=== PATIENT | male | born 1950 | race Caucasian/White ===

== ENCOUNTER 2016-11-08 10:31 | Inpatient (IN) ==
[2016-11-08] MEDS ORDERED: 0.9 % Sodium Chloride 1,000 ML ONE (10:51)
--- NOTE | 2016-11-08 10:55 | Emergency Department Note ---
Disposition Clinical Impression: Small bowel obstruction Umbilical hernia Qualifiers: Obstruction and gangrene presence: with obstruction but without gangrene Qualified Code(s): K42.0 - Umbilical hernia with obstruction, without gangrene Disposition: Admitted As Inpatient Condition: Good Referrals: Fabian Jarrett DO [Primary Care Provider] - Forms: ED Satisfaction Letter, Work/School Release Time of Disposition: 12:32 General Adult HPI - General Chief complaint: ED Abdominal Pain Stated complaint: ABD Pain. Time Seen by Provider: 11/08/16 10:38 Source: patient Mode of arrival: ambulatory Limitations: no limitations Nursing Notes Reviewed: Yes Vital Signs Reviewed: Yes - History of Present Illness HPI Narrative: 66-year-old male presenting to the emergency department with chief complaint of abdominal pain and distention. Patient states around midnight last evening he started having severe abdominal pain nausea of vomiting and increased gassiness. Patient also states he has had increased belching. Patient does have a significant history of 5 abdominal surgeries for hernia repairs including mesh. Patient denies any fever at home. Patient states periumbilical and epigastric pain mostly but diffuse upon palpation. He describes the pain as sharp and nonradiating and a 9 out of a 10. Pain Scale: 9 - Related Data Allergies Allergy/AdvReac Type Severity Reaction Status Date / Time No Known Allergies Allergy Verified 11/08/16 10:34 All systems ED: reviewed and negative except as stated. Constitutional: Denies: fever, chills, weakness Eyes: Reports: as per HPI ENT ED: Reports: as per HPI Cardiovascular: Denies: chest pain, palpitations Respiratory: Denies: cough, wheezes Gastrointestinal: Reports: abdominal pain, nausea, vomiting Genitourinary: Reports: as per HPI Musculoskeletal: Reports: as per HPI Integumentary: Reports: as per HPI Neurological: Reports: as per HPI Psychiatric: Reports: as per HPI Endocrine: Reports: as per HPI Hematological/Lymphatic: Reports: as per HPI Allergic/Immunologic: Reports: as per HPI Past Medical History - Past Medical History Attestation: Yes The following information was validated with the patient. Medical history: Reports: no medical history Psychiatric history: Reports: no psych history - Social History Smoking Status: Never smoker Smokeless Tobacco Status: No Alcohol use: Reports: occasionally Drug use: Reports: none Physical Exam - General Limitations: no limitations General appearance: alert, other (Patient appears very uncomfortable sitting in the chair) - Eye Eye exam: Present: normal appearance - Chest Chest inspection: Present: normal inspection, symmetric chest wall rise. Absent : tenderness - Respiratory Respiratory exam: Present: normal lung sounds bilaterally. Absent: respiratory distress, wheezes - Cardiovascular Cardiovascular exam: Present: regular rate, normal rhythm, normal heart sounds - Abdominal Exam Abdominal exam: Present: tenderness, distention, diminished bowel sounds, hypoactive bowel sounds. Absent: guarding, rebound, organomegaly, mass - Extremities Exam Extremities exam: Present: normal inspection, full ROM - Neurological Exam Neurological exam: Present: alert, oriented X3 - Psychiatric Psychiatric exam: Present: normal affect, normal mood - Skin Skin exam: Present: warm, intact Course Course Narrative: 66-year-old male presents to the emergency Department for chief complaint of abdominal pain. Patient has a strong history of abdominal surgery with 5 hernia repairs. Concern for small bowel obstruction at this time. Patient stable in the room at this time with stable vital signs. We will obtain a CT of the abdomen and pelvis along with lipase, CBC, CMP. Also obtained PT/INR and troponin with EKG to rule out ACS. - Reevaluation(s) Reevaluation #1: Reexamined patient. Patient stable in the room. Pain under control. Does not want any more pain medication at this point. CT of the abdomen and pelvis showed mid to distal small bowel obstruction with umbilical hernia with loops of bowel involvement. A call out to surgery for first refusal. Time: 12:19 Reevaluation #2: Spoke with surgeon on-call Dr. Su. She will defer the patient to Dr. Nice due to previous hernia surgeries being completed by him. Time: 12:20 Reevaluation #3: Dr. Hannah accepts the patient to surgical services. Time: 12:31 Vital Signs Temperature 0 F L 11/08/16 10:32 Pulse Rate 69 11/08/16 10:32 Respiratory Rate 18 11/08/16 10:32 Blood Pressure 168/93 11/08/16 10:32 O2 Sat by Pulse Oximetry 95 11/08/16 10:32 Temperature 96.8 F L 11/08/16 10:41 Pulse Rate 69 11/08/16 10:32 Respiratory Rate 18 11/08/16 10:32 Blood Pressure 168/93 11/08/16 10:32 O2 Sat by Pulse Oximetry 95 11/08/16 10:32 Oxygen Delivery Oxygen Delivery Room Air Medical Decision Making - Medical Records Medical records reviewed: Yes I reviewed the patient's medical records. - Lab Data Lab results reviewed: Yes I reviewed the patient's lab results. Result diagrams: 11/08/16 10:48 11/08/16 10:48 Lab Results 11/08/16 11/08/16 11/08/16 Range/Units 10:48 10:48 10:48 WBC 19.3 H (4.3-11.1) K/mcL RBC 5.89 H (4.19-5.50) M/mcL Hgb 17.1 H (12.9-16.9) g/dL Hct 51.5 H (37.5-50.1) % MCV 87.4 (83.0-100.0) fL MCH 29.0 (28.0-33.3) pg MCHC 33.2 (31.6-35.5) g/dL RDW 13.5 (11.5-14.5) % Plt Count 333 (140-400) K/mcL MPV 11.1 (9.4-12.4) fL Immature Gran % 0.5 (0-4) % Seg Neutrophils % 82.5 % Lymphocytes % 12.3 % Monocytes % 4.3 % Eosinophils % 0.2 % Basophils % 0.2 % Neutrophils # 16.0 H (1.6-8.9) K/mcL Lymphocytes # 2.4 (0.6-4.6) K/mcL Monocytes # 0.8 (0.0-1.3) K/mcL Eosinophils # 0.0 (0.0-0.6) K/mcL Basophils # 0.0 (0.0-0.2) K/mcL PT 11.7 (9.4-12.1) Seconds INR 1.1 Sodium 137 (136-145) mEq/L Potassium 4.7 H (3.5-4.5) mEq/L Chloride 100 (98-109) mEq/L Carbon Dioxide 26 (19-29) mEq/L BUN 11 (8-26) mg/dL Creatinine 1.03 (0.72-1.25) mg/dL Est GFR ( Amer) > 60 (> 60) Est GFR (Non-Af Amer) > 60 (> 60) BUN/Creatinine Ratio 11 (6-26) Glucose 216 H (70-99) mg/dL Calculated Osmolality 290 (280-300) Calcium 10.2 (8.6-10.8) mg/dL Total Bilirubin 1.0 (0.2-1.2) mg/dL AST 107 H (5-34) Units/L ALT 130 H (0-55) Units/L Alkaline Phosphatase 91 (38-126) Units/L Troponin I (0-0.03) ng/mL Serum Total Protein 8.5 H (6.0-8.3) g/dL Albumin 4.0 (3.5-5.0) g/dL Globulin 4.5 H (2.4-3.5) g/dL Albumin/Globulin Ratio 0.9 L (1.1-2.2) Lipase 24 (8-78) Units/L 11/08/ Range/Units 10:48 WBC (4.3-11.1) K/mcL RBC (4.19-5.50) M/mcL Hgb (12.9-16.9) g/dL Hct (37.5-50.1) % MCV (83.0-100.0) fL MCH (28.0-33.3) pg MCHC (31.6-35.5) g/dL RDW (11.5-14.5) % Plt Count (140-400) K/mcL MPV (9.4-12.4) fL Immature Gran % (0-4) % Seg Neutrophils % % Lymphocytes % % Monocytes % % Eosinophils % % Basophils % % Neutrophils # (1.6-8.9) K/mcL Lymphocytes # (0.6-4.6) K/mcL Monocytes # (0.0-1.3) K/mcL Eosinophils # (0.0-0.6) K/mcL Basophils # (0.0-0.2) K/mcL PT (9.4-12.1) Seconds INR Sodium (136-145) mEq/L Potassium (3.5-4.5) mEq/L Chloride (98-109) mEq/L Carbon Dioxide (19-29) mEq/L BUN (8-26) mg/dL Creatinine (0.72-1.25) mg/dL Est GFR ( Amer) (> 60) Est GFR (Non-Af Amer) (> 60) BUN/Creatinine Ratio (6-26) Glucose (70-99) mg/dL Calculated Osmolality (280-300) Calcium (8.6-10.8) mg/dL Total Bilirubin (0.2-1.2) mg/dL AST (5-34) Units/L ALT (0-55) Units/L Alkaline Phosphatase (38-126) Units/L Troponin I 0.01 (0-0.03) ng/mL Serum Total Protein (6.0-8.3) g/dL Albumin (3.5-5.0) g/dL Globulin (2.4-3.5) g/dL Albumin/Globulin Ratio (1.1-2.2) Lipase (8-78) Units/L - Radiology Data Radiology results reviewed: Yes I reviewed the patient's radiology results. - EKG Data EKG #1 EKG attestation: Yes I reviewed and interpreted this EKG. EKG results narrative: 59 bpm. Sinus bradycardia. Right bundle branch block noted. FL interval 131, QRS 139, QTc 458. No signs of acute ischemia or ST segment elevation. When compared to previous EKG on09/21/13 no significant changes noted. Right bundle branch block was present at that time.
[2016-11-08] MEDS: Ondansetron 4 MG/2 ML VIAL ONE ×2 (10:59→11:00)
[2016-11-08 11:01] LABS: Basophils % 0.2 %; Eosinophils % 0.2 %; Hematocrit 51.5 % (37.5-50.1); Hemoglobin 17.1 g/dL (12.9-16.9); Immature Granulocytes % 0.5 % (0-4); Lymphocytes # 2.4 K/mcL (0.6-4.6); Lymphocytes % 12.3 %; Mean Corpuscular HGB Conc 33.2 g/dL (31.6-35.5); Mean Corpuscular Volume 87.4 fL (83.0-100.0); Mean Platelet Volume 11.1 fL (9.4-12.4); Monocytes # 0.8 K/mcL (0.0-1.3); Monocytes % 4.3 %; Platelet Count 333 K/mcL (140-400); Red Blood Count 5.89 M/mcL (4.19-5.50); Red Cell Distribution Width 13.5 % (11.5-14.5); Segmented Neutrophils % 82.5 %
[2016-11-08 11:08] LABS: INR 1.1; Prothrombin Time 11.7 Seconds (9.4-12.1)
[2016-11-08 11:11] LABS: Alanine Aminotransferase 130 Units/L (0-55); Albumin/Globulin Ratio 0.9 (1.1-2.2); Alkaline Phosphatase 91 Units/L (38-126); Aspartate Amino Transferase 107 Units/L (5-34); BUN/Creatinine Ratio 11 (6-26); Blood Urea Nitrogen 11 mg/dL (8-26); Calcium 10.2 mg/dL (8.6-10.8); Carbon Dioxide 26 mEq/L (19-29); Chloride 100 mEq/L (98-109); Globulin 4.5 g/dL (2.4-3.5); Glucose 216 mg/dL (70-99); Lipase 24 Units/L (8-78); Osmolality,Calculated 290 (280-300); Potassium 4.7 mEq/L (3.5-4.5); Sodium 137 mEq/L (136-145); Total Protein 8.5 g/dL (6.0-8.3); eGFR For African Americans > 60 (> 60); eGFR For Non-African Americans > 60 (> 60)
--- NOTE | 2016-11-08 11:13 | Emergency Department Note ---
START Narrative - START START: I examined this patient and my medical decision-making was reviewed with the emergency medicine resident. I agree with the documented findings, disposition and treatment plan as described except to the extent set forth below. Patient seen with emergency medicine resident Dr.SAMANTHA MCKENNA, Please see a copy of her note for details of the H&P, ED evaluation, management and disposition. I have independently evaluated the patient and confirmed appropriate portions of the history and physical exam. Briefly: 66-year-old male presents with a day and a half of abdominal distention nausea vomiting and epigastric pain. Multiple prior surgeries for hernia repair. Abdomen is tympanitic and distended decrease her almost absent breath sounds. Ileus and/or bowel obstructions in the differential IV fluids anti-medics abdominal pelvic CT with IV contrast troponin and EKG are pending. Disposition pending.
[2016-11-08] MEDS ORDERED: *HR* HYDROmorphone (PF) 1 MG/ML SYRINGE IVP ONE ×2 (11:16→12:54)
[2016-11-08] MEDS ORDERED: 0.9 % Sodium Chloride 1,000 ML IVC ONE (12:51)
[2016-11-08] MEDS ORDERED: Ondansetron 4 MG/2 ML VIAL IVP ONE ×2 (12:51→19:01)
[2016-11-08] MEDS ORDERED: *HR* HYDROmorphone (PF) 1 MG/ML SYRINGE ONE (12:57)
[2016-11-08] MEDS ORDERED: Ondansetron 4 MG/2 ML VIAL IVP PRN ×2 (13:54→21:03)
[2016-11-08] MEDS: *HR* HYDROmorphone (PF) 1 MG/ML SYRINGE IVP PRN ×3 (14:17→22:09)
[2016-11-08] MEDS: Ringers Solution, Lactated 1,000 ML IVC SCH ×3 (14:18→19:31)
--- NOTE | 2016-11-08 17:19 | Anesthesia Evaluation PreOp ---
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 Other Medical History: Denies Any Significant HX, Other (BMI 41) Anesthesia History: No Prior Anesthetic Complications, Past Anesthesia (EGD for food bolus) Alcohol Use: occasionally Drug use: none Medications and Allergies Mv-Mn/FA/Vit K/Lycop/Lut/Coq10 [Daily Multivitamin Capsule] 1 each PO DAILY [History] 3 Allergy/AdvReac Type Severity Reaction Status Date / Time No Known Allergies Allergy Verified 11/08/16 12:40 - Meds/Allergy Pre-op Review Medications Reviewed: Yes Allergies Reviewed: Yes Beta Blockers on Current Med List: No Anesthesia Results - Labs 11/08/16 10:48 11/08/16 10:48 Anesthesia Exam Vital Signs/O2 Sat, Most Current Temp Pulse Resp BP Pulse Ox 97.8 F 71 18 148/87 95 11/08/16 15:15 11/08/16 15:15 11/08/16 15:15 11/08/16 15:15 11/08/16 15:15 Height: 1.78m Weight: 131kg NPO (# of Hours): acute abdomen - HEENT Pupil (Motor): Pupils equal, EOMI Mallampati: II Oral Opening: Greater than 3 - S[employer]IOR [employer]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
--- NOTE | 2016-11-08 17:33 | General Surg History&Physical ---
Date of Encounter: 11/08/16 Time of Encounter: 16:45 History of Present Illness Chief complaint: Abdominal pain, distention, nausea/vomiting; SBO HPI: Mr. Vargas is a 66 year old male referred to me after presenting to the emergency department with new onset abdominal distention and pain. Symptoms began last evening apparently have progressed in severity. Patient describes a single episode of emesis but multiple episodes of "dry heaves". Last normal bowel movement was approximately 36 hours ago. Evaluation included lab work which shows a leukocytosis of 19.3, hemoglobin 17.1, hematocrit 51.5 consistent with dehydration. Electrolytes are notable for a sodium of 4.7 but BUN and creatinine are normal, AST is 107 ALT 130. The remainder of the LFTs are within normal. CT of the abdomen and pelvis demonstrates a 5.0 x 8.8 cm periumbilical hernia containing several loops of bowel. Additionally several loops of small bowel proximal to the hernia appeared to be moderately dilated loops of small bowel distal to the hernia are collapsed with a transition zone described within the hernia. On my review of these images it appears that the transition zone and small bowel obstruction are not due to the recurrent hernia but rather it appears that the bowel obstruction is due to "adhesions". Incidental note of a 1.8 cm high attenuation nodular density adherent to the left nasal or urinary bladder suggestive of malignancy is noted. The patient relates multiple previous hernia repairs the most recent completed by me using mesh approximately 5 years ago. Past medical history: Recurrent ventral hernias; truncal obesity Surgical history: Multiple ventral hernia repairs; EGD for entrapped food bolus Allergies: No known drug allergies Medications: No routine home medications Social history: Patient is , lives with his spouse; he does not smoke, never has; he denies any illicit drug use. The patient admits to occasional ( weekend) alcohol Family history: Noncontributory Physical examination: Age-appropriate male resting comfortably in his hospital bed. He is in no acute distress. He is afebrile, currently 97.8; pulse 71; respirations 18; blood pressure 148/87. SPO2 on room air 94-95% Skin: Warm without obvious jaundice Lungs: Clear bilaterally, no obvious abdominal pain with deep inspiration Cardiac: Regular rate, no appreciable murmurs Abdomen: Protuberant, tympanitic but nontender. Bowel sounds hypoactive. Mild to moderate deformity of the umbilicus and periumbilical abdominal wall with an associated fascial defect but no obvious masses or tenderness. Extremities: No obvious clubbing, cyanosis, or edema Impression: 66-year-old male with new onset abdominal distention, pain, nausea/ vomiting with radiologic evidence of a small bowel obstruction. The patient was examined, labs and x-rays were reviewed. Nasogastric decompression attempted without success as the NG tube could not be passed via the nose. An exploratory celiotomy has been recommended. The procedure was discussed in detail with the patient and his . Risks include hemorrhage, infection, injury to adjacent structures, respiratory failure/ pneumonia and cardiac risks such as dysrhythmia and/or LA. If the hernia is repaired, with or without mesh, recurrent hernia remains as a risk of the current surgery. Past Med Surg Social Fam HX - Past Medical History Medical history: no medical history Psychiatric history: no psych history - Past Surgical History Surgical History: herniorrhaphy - Social History Smoking Status: Never smoker Smokeless Tobacco Status: No Alcohol use: occasionally Drug use: none - Family History Father Living Status: Age at : 83 Hx Family Cancer: Yes (lung) Medications and Allergies Mv-Mn/FA/Vit K/Lycop/Lut/Coq10 [Daily Multivitamin Capsule] 1 each PO DAILY [History] 3 Allergy/AdvReac Type Severity Reaction Status Date / Time No Known Allergies Allergy Verified 11/08/16 12:40 Review of Systems All systems PM: A 10-system review of systems was performed and is negative for pertinent findings except as documented above in the HPI. General Surgery Exam Initial Vital Signs Temp Pulse Resp BP Pulse Ox 0 F L 69 18 168/93 95 11/08/16 10:32 11/08/16 10:32 11/08/16 10:32 11/08/16 10:32 11/08/16 10:32 Results - Labs 11/08/16 10:48 11/08/16 10:48 Abnormal lab results WBC 19.3 K/mcL (4.3-11.1) H 11/08/16 10:48 RBC 5.89 M/mcL (4.19-5.50) H 11/08/16 10:48 Hgb 17.1 g/dL (12.9-16.9) H 11/08/16 10:48 Hct 51.5 % (37.5-50.1) H 11/08/16 10:48 Neutrophils # 16.0 K/mcL (1.6-8.9) H 11/08/16 10:48 Potassium 4.7 mEq/L (3.5-4.5) H 11/08/16 10:48 Glucose 216 mg/dL (70-99) H 11/08/16 10:48 AST 107 Units/L (5-34) H 11/08/16 10:48 ALT 130 Units/L (0-55) H 11/08/16 10:48 Serum Total Protein 8.5 g/dL (6.0-8.3) H 11/08/16 10:48 Globulin 4.5 g/dL (2.4-3.5) H 11/08/16 10:48 Albumin/Globulin Ratio 0.9 (1.1-2.2) L 11/08/16 10:48 All other labs normal.
[2016-11-08] MEDS ORDERED: *HR* Midazolam HCl 2 MG/2 ML VIAL ONE (17:35)
[2016-11-08] MEDS ORDERED: Lidocaine -MPF 2% 2 ML VIAL ONE (17:35)
[2016-11-08] MEDS ORDERED: *HR* Rocuronium Bromide 50 MG/5 ML VIAL ONE (17:35)
[2016-11-08] MEDS ORDERED: *HR* Propofol 200 MG/20 ML VIAL IVP ONE (17:35)
[2016-11-08] MEDS ORDERED: *HR* FentaNYL (PF) 100 MCG/2 ML VIAL ONE (17:35)
[2016-11-08] MEDS ORDERED: *HR* Succinylcholine 200 MG/10 ML VIAL IVP ONE (17:35)
[2016-11-08] MEDS ORDERED: Lidocaine -MPF 4% 5 ML AMPUL ONE (17:35)
[2016-11-08] MEDS ORDERED: Dexamethasone 4 MG/ML VIAL ONE (18:43)
[2016-11-08] MEDS ORDERED: Naloxone 0.4 MG/ML INJ IVP PRN ×2 (19:01→21:03)
[2016-11-08] MEDS ORDERED: *HR* Promethazine 25 MG/ML VIAL IVP PRN (19:01)
[2016-11-08] MEDS ORDERED: *HR* HYDROmorphone (PF) 1 MG/ML SYRINGE IVP PRN (19:01)
[2016-11-08] MEDS ORDERED: *HR* Meperidine 25 MG/ML SYRINGE IVP PRN (19:01)
[2016-11-08] MEDS ORDERED: Ringers Solution, Lactated 1,000 ML IVC SCH ×2 (19:15→21:03)
[2016-11-08] MEDS ORDERED: Bupivacaine/EPI 1:200k 0.5%PF 30 ML VIAL ONE (19:34)
[2016-11-08] MEDS ORDERED: *HR* Morphine 10 MG/ML VIAL ONE (19:39)
[2016-11-08] MEDS ORDERED: Neostigmine Methylsulfate 3 MG/3 ML SYRINGE ONE (19:39)
[2016-11-08] MEDS ORDERED: EPHEDrine 50 MG/ML VIAL ONE (19:49)
--- NOTE | 2016-11-08 20:30 | Operative Note ---
Date of procedure: 11/08/16 Pre-op diagnosis: SBO Post-op diagnosis: same Procedure: exploratory celiotomy with removal mesh prosthesis, small bowel resection with stapled entero enterostomy Implants: none Complications: none apparent Anesthesia: GETA Local Anesthetics: 0.25% Sensorcaine HCL with Epinephrine 1:200,000 SubQ (cc) ( 20mL) Surgeon: Cheng Hannah Estimated blood loss (cc): 10 IV fluids (cc): 3,000 Specimen: segment small bowel and mesh prosthesis Condition: stable Disposition: PACU Procedure in Detail: The patient was brought to the operating room where he was placed supine upon the operating room table. Surgical consent had been obtained preoperatively. The patient was appropriately identified as to person and procedure. The accuracy of this information was confirmed by the procedure team. The patient was then intubated and anesthetized under the supervision of Dr. Samanta Hurley. An OG tube was passed, a Young catheter was inserted. The abdomen was prepped and draped in the usual sterile fashion. Under anesthesia the abdominal wall was examined. The anterior abdominal wall involving the umbilicus and surrounding area was irregular but a fully defined hernia or tissue prolapsing through a hernia was not identified. A midline incision was planned extending from the infraumbilical anterior abdominal wall to the supraumbilical anterior abdominal wall. The skin was then incised with dissection extending to the midline fascia. Bleeding points were controlled with electrocautery. The fascia was incised, with immediate identification of subfascial mesh. The incision was extended both cephalad and caudad to the edges of the mesh prosthesis. The mesh was then dissected from the surrounding tissue. No hernia was identified, however, a segment of small bowel was densely adherent to the mesh prosthesis causing the small bowel obstruction. The bowel was perforated as a result of the dissection to remove the mesh. No significant "spillage" resulted from this perforaton. Several adjacent loops of small bowel were adherent to this segment but were mobilized by sharp dissection of these adhesions. The involved segment of small bowel was then resected using an Ethicon 75 mm linear stapler applied proximal and distal to the perforation. The mesentery was divided with the aid of a [employer] Harmonic dissector. The 2 free ends of small bowel were placed [id number], and approximated with interrupted seromuscular 3-0 silk. A stapled [id number] , functional end-to-end anastomosis was created with the Ethicon 75 mm linear stapler. The remaining enterotomy was closed with interrupted 3-0 silk and reinforced by application of an Ethicon TX 60 mm stapler. The mesenteric defect was with an interrupted 3-0 silk. The small bowel was examined with no other abnormalities detected. There were no hernias detected in the anterior abdominal wall. Hemostasis was checked and deemed adequate. Several milliliters of 0.25% bupivacaine with 1 200,000 epinephrine was infiltrated into the fascia and skin edges. The abdominal wall was closed with through and through interrupted #2 Ethilon followed by approximation of the fascia with interrupted [id number] 0 Vicryl. The subcutaneous tissue was approximated with interrupted horizontal mattress 3-0 Vicryl. The skin edges were approximated with ben. The through and through interrupted #2 Ethilon were secured. A fluffy gauze dressing and tape was placed. The patient was taken to PACU in stable condition Needle, sponge, and instrument counts were correct at the close of the case. Total volume of 0.25% bupivacaine with 1-200,000 epinephrine used during this procedure 20 mL.
--- NOTE | 2016-11-08 20:51 | Anesthesia Evaluation Post Op ---
Date of Encounter: 11/08/16 Time of Encounter: 20:51 - Vital Signs Vital Signs: Vital Signs/O2 Sat, Most Current Temp Pulse Resp BP Pulse Ox 98.1 F 75 20 169/77 95 11/08/16 20:16 11/08/16 20:36 11/08/16 20:36 11/08/16 20:36 11/08/16 20:36 - Lungs Lungs: Clear Ascult./Percussion - Airway Airway: Non-obstructed - Cardiovascular Regular Rate - Mental Status Mental Status: Alert & Oriented, Answers Appropriately - Pain Pain Scale: 0 Pain Scale used: Numeric (1 - 10) - Nausea Vomiting Nausea Vomiting: Not Present - Hydration Hydration: Ice chips, Young catheter - Discharge PostOp Status: Transfer Patient to floor
[2016-11-09 04:38] LABS: Basophils % 0.1 %; Hematocrit 45.4 % (37.5-50.1); Hemoglobin 14.7 g/dL (12.9-16.9); Immature Granulocytes % 0.4 % (0-4); Lymphocytes # 1.4 K/mcL (0.6-4.6); Lymphocytes % 6.4 %; Mean Corpuscular HGB Conc 32.4 g/dL (31.6-35.5); Mean Corpuscular Volume 89.5 fL (83.0-100.0); Mean Platelet Volume 11.3 fL (9.4-12.4); Monocytes # 1.4 K/mcL (0.0-1.3); Monocytes % 6.2 %; Neutrophils # 19.4 K/mcL (1.6-8.9); Platelet Count 285 K/mcL (140-400); Red Blood Count 5.07 M/mcL (4.19-5.50); Red Cell Distribution Width 14.3 % (11.5-14.5); Segmented Neutrophils % 86.9 %
[2016-11-09 04:54] LABS: BUN/Creatinine Ratio 15 (6-26); Blood Urea Nitrogen 15 mg/dL (8-26); Calcium 8.8 mg/dL (8.6-10.8); Carbon Dioxide 29 mEq/L (19-29); Chloride 103 mEq/L (98-109); Glucose 161 mg/dL (70-99); Osmolality,Calculated 294 (280-300); Potassium 4.5 mEq/L (3.5-4.5); Sodium 140 mEq/L (136-145); eGFR For African Americans > 60 (> 60); eGFR For Non-African Americans > 60 (> 60)
[2016-11-09] MEDS: *HR* HYDROmorphone (PF) 1 MG/ML SYRINGE IVP PRN ×3 (08:00→20:29)
[2016-11-09] MEDS: Pantoprazole 40 MG VIAL IVP SCH (08:01)
--- NOTE | 2016-11-09 08:16 | Urology - Consult Note ---
Date of Encounter: 11/09/16 Time of Encounter: 08:15 - Assessment and Plan (1) Bladder tumor Current Visit: Yes Status: Acute Assessment and plan: I reviewed the CT scan images. there is an obvious lesion emanating from the left lateral wall of the bladder. it appears to be separate from the prostate and is unlikely a median lobe of the prostate. it can be assumed this is a bladder tumor by its appearance on ct scan. no need for office cystoscopy to confirm. will plan to proceed with TURBT and bilateral retrograde pyelograms as outpatient after patient recovers from his recent ABD surgery. the procedure including indications and risks were discussed with pt this AM. My ampoule filler will contact patient in the near future to arrange the procedure date. no need for office visit unless having issues. I recommend limiting anticoagulation if possible to reduce the risk for tumor bleeding. Urology CN:MENDEL Consult date: 11/09/16 Reason for consult Urology: Other History of present illness: 66 yo currently admitted with a SOB. POD#1. CT scan at admission indicates a left lateral bladder wall exophytic tumor. patient without prior knowledge of tumor and no history of bladder cancer. no GH. was seen by urology in 2013 for a ureteral stone that he passed. he stated that a few months ago he developed painless gross hematuria with clots for one day after starting oral testosterone supplement. Past Med Surg Social Fam HX - Past Medical History Medical history: no medical history Psychiatric history: no psych history - Past Surgical History Surgical History: herniorrhaphy - Social History Smoking Status: Never smoker Smokeless Tobacco Status: No Alcohol use: occasionally Drug use: none - Family History Father Living Status: Age at : 83 Hx Family Cancer: Yes (lung) Medications and Allergies Mv-Mn/FA/Vit K/Lycop/Lut/Coq10 [Daily Multivitamin Capsule] 1 each PO DAILY [History] 3 Allergy/AdvReac Type Severity Reaction Status Date / Time No Known Allergies Allergy Verified 11/08/16 12:40 Review of Systems - Constitutional no chills, no fever(s) - EENT Nose, mouth and throat: no dizziness - Cardiovascular no chest pain - Respiratory no cough - Gastrointestinal abdominal pain, nausea - Genitourinary hematuria - Musculoskeletal back pain - Integumentary no erythema - Neurological no confusion - Psychiatric no anxiety - Hematologic/Lymphatic no easy bleeding - Allergic/Immunologic no throat swelling Exam Initial Vital Signs Temp Pulse Resp BP Pulse Ox 0 F L 69 18 168/93 95 11/08/16 10:32 11/08/16 10:32 11/08/16 10:32 11/08/16 10:32 11/08/16 10:32 - General physical appearance Present: no distress, no pain - Eyes Present: PERRL - ENT Present: normal nares - Neck Present: no masses - Abdomen Abdomen: Present: soft, surgical scars, distended (mild. nonacute abd) - Integumentary Present: no rash, no growths, no abnormal pigmentation - Neurologic Present: normal coordination. Absent: disoriented - Additional Findings conklin cath in place with clear urine. Urology Results - Labs 11/09/16 03:56 11/09/16 03:56 Abnormal lab results WBC 22.4 K/mcL (4.3-11.1) H 11/09/16 03:56 Neutrophils # 19.4 K/mcL (1.6-8.9) H 11/09/16 03:56 Monocytes # 1.4 K/mcL (0.0-1.3) H 11/09/16 03:56 Glucose 161 mg/dL (70-99) H 11/09/16 03:56 POC Glucose 159 (58-89) H 11/09/16 05:58 AST 107 Units/L (5-34) H 11/08/16 10:48 ALT 130 Units/L (0-55) H 11/08/16 10:48 Serum Total Protein 8.5 g/dL (6.0-8.3) H 11/08/16 10:48 Globulin 4.5 g/dL (2.4-3.5) H 11/08/16 10:48 Albumin/Globulin Ratio 0.9 (1.1-2.2) L 11/08/16 10:48 Diabetes panel 11/09/16 Range/Units 03:56 Sodium 140 (136-145) mEq/L Potassium 4.5 (3.5-4.5) mEq/L Chloride 103 (98-109) mEq/L Carbon Dioxide 29 (19-29) mEq/L BUN 15 (8-26) mg/dL Creatinine 1.01 (0.72-1.25) mg/dL Glucose 161 H (70-99) mg/dL Calcium 8.8 (8.6-10.8) mg/dL Calcium panel 11/09/16 Range/Units 03:56 Calcium 8.8 (8.6-10.8) mg/dL Pituitary panel 11/09/16 Range/Units 03:56 Sodium 140 (136-145) mEq/L Potassium 4.5 (3.5-4.5) mEq/L Chloride 103 (98-109) mEq/L Carbon Dioxide 29 (19-29) mEq/L BUN 15 (8-26) mg/dL Creatinine 1.01 (0.72-1.25) mg/dL Glucose 161 H (70-99) mg/dL Calcium 8.8 (8.6-10.8) mg/dL Adrenal panel 11/09/16 Range/Units 03:56 Sodium 140 (136-145) mEq/L Potassium 4.5 (3.5-4.5) mEq/L Chloride 103 (98-109) mEq/L Carbon Dioxide 29 (19-29) mEq/L BUN 15 (8-26) mg/dL Creatinine 1.01 (0.72-1.25) mg/dL Glucose 161 H (70-99) mg/dL Calcium 8.8 (8.6-10.8) mg/dL All other labs normal. Consult Discharge Plan - Plan Referrals: Fabian Jarrett DO [Primary Care Provider] -
[2016-11-09] MEDS ORDERED: *HR* HYDROcodone/Acet 5/325 mg TABLET PO PRN (11:07)
[2016-11-09] MEDS ORDERED: Acetaminophen 325 MG TABLET PO PRN (11:07)
--- NOTE | 2016-11-09 11:15 | General Surgery Progress Note ---
Date of Encounter: 11/09/16 Time of Encounter: 10:30 Subjective Patient reports: feels better Narrative: General Surgery - POD #1 patient feeling well; no N/V; minimal incisional pain The patient has been afebrile since surgery, currently 98.4; pulse 91, respirations 16, blood pressure 159/77. SPO2 on 2 L/min nasal cannula 96% Lungs: Clear, no abdominal pain with deep inspiration Cardiac: Regular rate, no appreciable murmurs Abdomen: Protuberant, minimal incisional tenderness. Active bowel sounds but no flatus or BM. Incision clean and dry, dressing removed Urine output: No recorded output but the Young reservoir is full Laboratories: White count 22.4, hemoglobin 14.7, hematocrit 45.4; platelet count 285,000 Neutrophils 19.4% Electrolytes within normal limits; BUN 15, creatinine 1.01. Impression: SBO, postoperative day 1, status post exploratory celiotomy, lysis of adhesions with small bowel resection and release of small bowel obstruction. Acceptable postoperative state Leukocytosis likely due to surgery; including neutrophilia - expected to resolve with additional healing Preoperative dehydration - evidenced by elevated hemoglobin and hematocrit; improved with perioperative IV fluids Plan: Allow clear liquids Remove Young Encourage activity out of bed Objective Vital Signs - Last 8 Hours Temp Pulse Resp BP Pulse Ox 11/09/16 07:35 98.4 F 91 16 159/77 96 11/09/16 03:45 98.7 F 70 16 133/64 94 Intake and Output 11/08/16 11/09/16 11/09/16 23:59 07:59 15:59 Intake Total 1999 0 / 0 Output Total 825 / 825 Balance 1175 / 1175 0 / 0 Intake: IV Fluids 1999 Oral 0 / 0 Output: Estimated Blood Loss Urine Amount (Catheter) Gastric Drainage 800 / 800 Other: Meal NPO NPO Percent of Meal Consumed 0% Weight 139.616 kg Blood Glucose* 159 Patient Weight 11/09/16 23:59 Weight 139.616 kg - Labs 11/09/16 03:56 11/09/16 03:56 Diabetes panel 11/09/16 Range/Units 03:56 Sodium 140 (136-145) mEq/L Potassium 4.5 (3.5-4.5) mEq/L Chloride 103 (98-109) mEq/L Carbon Dioxide 29 (19-29) mEq/L BUN 15 (8-26) mg/dL Creatinine 1.01 (0.72-1.25) mg/dL Glucose 161 H (70-99) mg/dL Calcium 8.8 (8.6-10.8) mg/dL Calcium panel 11/09/16 Range/Units 03:56 Calcium 8.8 (8.6-10.8) mg/dL Pituitary panel 11/09/16 Range/Units 03:56 Sodium 140 (136-145) mEq/L Potassium 4.5 (3.5-4.5) mEq/L Chloride 103 (98-109) mEq/L Carbon Dioxide 29 (19-29) mEq/L BUN 15 (8-26) mg/dL Creatinine 1.01 (0.72-1.25) mg/dL Glucose 161 H (70-99) mg/dL Calcium 8.8 (8.6-10.8) mg/dL Adrenal panel 11/09/16 Range/Units 03:56 Sodium 140 (136-145) mEq/L Potassium 4.5 (3.5-4.5) mEq/L Chloride 103 (98-109) mEq/L Carbon Dioxide 29 (19-29) mEq/L BUN 15 (8-26) mg/dL Creatinine 1.01 (0.72-1.25) mg/dL Glucose 161 H (70-99) mg/dL Calcium 8.8 (8.6-10.8) mg/dL - VTE Documentation of Mechanical Device: Intermittent pneumatic compression device Consult Discharge Plan - Plan Referrals: Fabian Jarrett DO [Primary Care Provider] -
[2016-11-09] MEDS: Ringers Solution, Lactated 1,000 ML IVC SCH (12:20)
--- NOTE | 2016-11-09 18:14 | Electrocardiograph Report ---
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
[2016-11-10] MEDS: Ringers Solution, Lactated 1,000 ML IVC SCH (03:20)
[2016-11-10 05:39] LABS: Basophils % 0.2 %; Eosinophils # 0.1 K/mcL (0.0-0.6); Eosinophils % 0.5 %; Hematocrit 46.8 % (37.5-50.1); Hemoglobin 15.1 g/dL (12.9-16.9); Immature Granulocytes % 0.4 % (0-4); Lymphocytes # 1.6 K/mcL (0.6-4.6); Lymphocytes % 8.7 %; Mean Corpuscular HGB Conc 32.3 g/dL (31.6-35.5); Mean Corpuscular Hemoglobin 28.8 pg (28.0-33.3); Mean Corpuscular Volume 89.1 fL (83.0-100.0); Monocytes % 11.1 %; Neutrophils # 14.1 K/mcL (1.6-8.9); Platelet Count 283 K/mcL (140-400); Red Blood Count 5.25 M/mcL (4.19-5.50); Red Cell Distribution Width 14.2 % (11.5-14.5); Segmented Neutrophils % 79.1 %
[2016-11-10] MEDS: Pantoprazole 40 MG VIAL IVP SCH (08:27)
--- NOTE | 2016-11-10 12:32 | General Surgery Progress Note ---
Date of Encounter: 11/10/16 Time of Encounter: 12:27 Subjective Patient reports: other (cramping abdominal pain) Narrative: General Surgery - POD #2 Patient complaining of crampy abdominal pain, belching copious gas but no emesis. No flatus or BM Afebrile, currently 97.8, pulse 85, respirations 18, blood pressure 160/89. Lungs: Clear bilaterally with no abdominal pain on deep inspiration Abdomen: Protuberant, active bowel sounds. Minimal incisional tenderness. The midline incision is clean and dry. Urine output: 200 mL recorded for calendar day 11/09/16; 175 mL so far today Laboratories: Leukocytosis has improved to 17.9, hemoglobin stable at 15.1, hematocrit 46.8. Platelet count 283,000. Neutrophils have improved to 14.1% Impression: Postoperative day #2; status post exploratory laparotomy with lysis of adhesions and removal of mesh prosthesis and release of small bowel obstruction. Patient experiencing crampy abdominal pain as bowel function returns. Oliguria Improving leukocytosis and neutrophilia Objective Vital Signs - Last 8 Hours Temp Pulse Resp BP Pulse Ox 11/10/16 06:41 97.8 F 85 18 168/89 95 Intake and Output 11/09/16 11/10/16 11/10/16 23:59 07:59 15:59 Intake Total 420 / 420 700 / 700 800 / 800 Output Total 200 / 200 175 / 175 Balance 220 / 220 525 / 525 800 / 800 Intake: IV Fluids 300 / 300 400 / 400 Lactated Ringers 1,000 ML @ 50 300 / 300 400 / 400 mls/hr IVC .Q20H [facility] Rx#: [id number] Oral 120 / 120 300 / 300 800 / 800 Output: Urine 200 / 200 175 / 175 Other: Meal Dinner Clears Weight 139.6 kg Patient Weight 11/10/16 23:59 Weight 139.6 kg - Labs 11/10/16 04:54 11/09/16 03:56 - VTE Documentation of Mechanical Device: Intermittent pneumatic compression device Consult Discharge Plan - Plan Referrals: Faiban Jarrett DO [Primary Care Provider] - 11/18/16 12:00 pm
[2016-11-10] MEDS ORDERED: 0.9 % Sodium Chloride 250 ML IVC ONE (16:31)
--- NOTE | 2016-11-10 16:36 | General Surgery Progress Note ---
Date of Encounter: 11/10/16 Time of Encounter: 16:33 Subjective Patient reports: no flatus, no bowel movement Narrative: General Surgery - POD #2 Patient feeling slightly improved as cramping abdominal pain has diminished but abdominal distention has increased.Abdomen tense, tympanic. No passage of flatus or BM. The patient is afebrile, pulse is stable at 86, respiratory rate 18, blood pressure 182/83. No nausea or vomiting Impression: Worsening abdominal distention; tympany consistent with air filled bowel. Plan: Fleet enema now 250 mL fluid bolus Check labs including phosphorus and magnesium in a.m. Objective Vital Signs - Last 8 Hours Temp Pulse Resp BP Pulse Ox 11/10/16 14:43 98.2 F 86 18 182/83 95 Intake and Output 11/10/16 11/10/16 11/10/16 07:59 15:59 23:59 Intake Total 700 / 700 800 / 800 Output Total 175 / 175 200 / 200 Balance 525 / 525 600 / 600 Intake: IV Fluids 400 / 400 Lactated Ringers 1,000 ML @ 50 400 / 400 mls/hr IVC .Q20H [facility] Rx#: [id number] Oral 300 / 300 800 / 800 Output: Urine 175 / 175 200 / 200 Other: Meal Clears Weight 139.6 kg Patient Weight 11/10/16 23:59 Weight 139.6 kg - Labs 11/10/16 04:54 11/09/16 03:56 - VTE Documentation of Mechanical Device: Intermittent pneumatic compression device Consult Discharge Plan - Plan Referrals: Fabian Jarrett DO [Primary Care Provider] - 11/18/16 12:00 pm
[2016-11-10] MEDS: D5% in 0.45% NACL 1,000 ML IVC SCH (18:39)
[2016-11-11 06:41] LABS: BUN/Creatinine Ratio 20 (6-26); Blood Urea Nitrogen 18 mg/dL (8-26); Calcium 8.5 mg/dL (8.6-10.8); Carbon Dioxide 29 mEq/L (19-29); Chloride 101 mEq/L (98-109); Glucose 153 mg/dL (70-99); Magnesium 1.9 mg/dL (1.6-2.6); Osmolality,Calculated 291 (280-300); Phosphorous 2.1 mg/dL (2.3-4.7); Potassium 3.7 mEq/L (3.5-4.5); Sodium 138 mEq/L (136-145); eGFR For African Americans > 60 (> 60); eGFR For Non-African Americans > 60 (> 60)
[2016-11-11 06:58] LABS: Basophils % 0.3 %; Eosinophils # 0.4 K/mcL (0.0-0.6); Eosinophils % 2.4 %; Hematocrit 42.7 % (37.5-50.1); Hemoglobin 14.2 g/dL (12.9-16.9); Immature Granulocytes % 0.4 % (0-4); Lymphocytes # 2.6 K/mcL (0.6-4.6); Lymphocytes % 17.5 %; Mean Corpuscular HGB Conc 33.3 g/dL (31.6-35.5); Mean Corpuscular Hemoglobin 29.4 pg (28.0-33.3); Mean Corpuscular Volume 88.4 fL (83.0-100.0); Mean Platelet Volume 11.1 fL (9.4-12.4); Monocytes # 1.7 K/mcL (0.0-1.3); Monocytes % 11.4 %; Neutrophils # 10.2 K/mcL (1.6-8.9); Platelet Count 266 K/mcL (140-400); Red Blood Count 4.83 M/mcL (4.19-5.50); Red Cell Distribution Width 13.9 % (11.5-14.5)
[2016-11-11] MEDS: Pantoprazole 40 MG VIAL IVP SCH (08:31)
[2016-11-11] MEDS: D5% in 0.45% NACL 1,000 ML IVC SCH (12:22)
--- NOTE | 2016-11-11 13:50 | General Surgery Progress Note ---
Date of Encounter: 11/11/16 Time of Encounter: 13:40 Subjective Patient reports: feels better, flatus, bowel movement Narrative: General Surgery - POD #3 Patient feeling much better with passage of flatus and BM. Less abdominal distention as a result. Patient remains afebrile, currently 97.6, pulse 70, respirations 16, blood pressure 166/75. Lungs: clear to auscultation Cardiac: regular rate, no appreciable murmurs Abdomen: persistent distention but significantly decreased since last PM. Active bowel sounds Incision with serous drainage; no pus, erythema, or edema evident Recorded urine output 375 mL for 11/10/16; 300 mL recorded so far today. Laboratories: White count continues to improve, 15,000; hemoglobin 14.2, hematocrit 42.7; platelet count 266,000. Neutrophils improved to 10.2%, monocytes 1.7% Electrolytes, BUN, creatinine remain stable, within normal limits Phosphorus 2.1, magnesium 1.9 Impression: Postoperative day 3, status post exploratory celiotomy with lysis of adhesions and removal of mesh prosthesis and release of small bowel obstruction. Resolution of crampy abdominal pain with passage of flatus and BM. Abdominal distention also improved. Hypophosphatemia Likely bladder tumor to be addressed by Dr. Kerns following recovery from the recent SBO Plan: Advance diet from full liquids to regular as tolerated Potassium phosphate to correct hypophosphatemia; discontinue IV fluids once the potassium phosphate has been infused Continue to encourage activity out of bed. repeat CBC in AM. Objective Vital Signs - Last 8 Hours Temp Pulse Resp BP Pulse Ox 11/11/16 10:00 97.6 F 70 16 166/75 95 11/11/16 07:03 97.6 F 77 16 165/78 94 Intake and Output 11/10/16 11/11/16 11/11/16 23:59 07:59 15:59 Intake Total 0 / 0 731 / 731 1369 / 1369 Output Total 0 / 0 300 / 300 1 / 1 Balance 0 / 0 431 / 431 1368 / 1368 Intake: IV Fluids 731 / 731 269 / 269 D5% And 0.45% Nacl 1000 Ml Bag 731 / 731 269 / 269 1,000 ML @ 75 mls/hr IVC . [id number] [facility] Rx#:[id number] Oral 0 / 0 0 / 0 1100 / 1100 Output: Urine 0 / 0 300 / 300 Urine/Stool Mix Other: Meal water pitcher Stool Size Moderate Stool Consistency liquid loose liquid Stool Color Brown Brown # Bowel Movements 1 6 Weight 139.4 kg Patient Weight 11/11/16 23:59 Weight 139.4 kg - Labs 11/11/16 06:11 11/11/16 06:11 Diabetes panel 11/11/16 Range/Units 06:11 Sodium 138 (136-145) mEq/L Potassium 3.7 (3.5-4.5) mEq/L Chloride 101 (98-109) mEq/L Carbon Dioxide 29 (19-29) mEq/L BUN 18 (8-26) mg/dL Creatinine 0.88 (0.72-1.25) mg/dL Glucose 153 H (70-99) mg/dL Calcium 8.5 L (8.6-10.8) mg/dL Calcium panel 11/11/16 Range/Units 06:11 Calcium 8.5 L (8.6-10.8) mg/dL Phosphorus 2.1 L (2.3-4.7) mg/dL Pituitary panel 11/11/16 Range/Units 06:11 Sodium 138 (136-145) mEq/L Potassium 3.7 (3.5-4.5) mEq/L Chloride 101 (98-109) mEq/L Carbon Dioxide 29 (19-29) mEq/L BUN 18 (8-26) mg/dL Creatinine 0.88 (0.72-1.25) mg/dL Glucose 153 H (70-99) mg/dL Calcium 8.5 L (8.6-10.8) mg/dL Adrenal panel 11/11/16 Range/Units 06:11 Sodium 138 (136-145) mEq/L Potassium 3.7 (3.5-4.5) mEq/L Chloride 101 (98-109) mEq/L Carbon Dioxide 29 (19-29) mEq/L BUN 18 (8-26) mg/dL Creatinine 0.88 (0.72-1.25) mg/dL Glucose 153 H (70-99) mg/dL Calcium 8.5 L (8.6-10.8) mg/dL - VTE Documentation of Mechanical Device: Intermittent pneumatic compression device Consult Discharge Plan - Plan Referrals: Luiza,Fabian D, DO [Primary Care Provider] - 11/18/16 12:00 pm
[2016-11-12 07:08] LABS: Basophils # 0.1 K/mcL (0.0-0.2); Basophils % 0.6 %; Eosinophils # 0.4 K/mcL (0.0-0.6); Eosinophils % 2.9 %; Hemoglobin 13.7 g/dL (12.9-16.9); Immature Granulocytes % 1.1 % (0-4); Lymphocytes # 2.1 K/mcL (0.6-4.6); Lymphocytes % 15.1 %; Mean Corpuscular HGB Conc 32.6 g/dL (31.6-35.5); Mean Corpuscular Hemoglobin 28.1 pg (28.0-33.3); Mean Corpuscular Volume 86.2 fL (83.0-100.0); Mean Platelet Volume 11.1 fL (9.4-12.4); Monocytes # 1.7 K/mcL (0.0-1.3); Monocytes % 12.1 %; Neutrophils # 9.6 K/mcL (1.6-8.9); Platelet Count 300 K/mcL (140-400); Red Blood Count 4.87 M/mcL (4.19-5.50); Red Cell Distribution Width 13.5 % (11.5-14.5); Segmented Neutrophils % 68.2 %
[2016-11-12 07:12] VITALS: BP 160/73
--- NOTE | 2016-11-12 12:22 | Discharge Summary ---
Outpatient Proc Discharge Plan - Plan Additional Instructions: Regular diet Patient may shower, wash incision with soap and water Activity as tolerated; lifting limited to less than 20 pounds Tylenol, ibuprofen, Motrin, Advil, Aleve, etc. as needed for pain Follow-up in the office, 11/17/16; patient to call office in the a.m. to make this appointment Prescription for abdominal binder to be used as needed Prescriptions: Elastic Bandage 1 each TP ONCE #1 bandage Home Medications: Mv-Mn/FA/Vit K/Lycop/Lut/Coq10 [Daily Multivitamin Capsule] 1 each PO DAILY [History] Acetaminophen [Tylenol] 650 mg PO Q6HR PRN tablet 11/12/16 [Rx] Elastic Bandage 1 each TP ONCE #1 bandage 11/12/16 [Rx]
== END 2016-11-12 13:53 | disposition home or self-care (01) | DRG 331 ==
LOC: EMEROO 10:31 → 3ANU 10:31
PROVIDERS: ADMIT Surgery; ATTEND Surgery

== ENCOUNTER 2016-11-21 14:36 | Inpatient (IN) ==
[2016-11-21] MEDS ORDERED: Acetaminophen 325 MG TABLET PO PRN (16:02)
[2016-11-21] MEDS ORDERED: Ondansetron 4 MG/2 ML VIAL IVP PRN (16:02)
[2016-11-21] MEDS ORDERED: Ringers Solution, Lactated 1,000 ML IVC SCH (16:15)
[2016-11-21 17:22] LABS: Basophils # 0.1 K/mcL (0.0-0.2); Basophils % 0.5 %; Eosinophils # 0.2 K/mcL (0.0-0.6); Eosinophils % 1.2 %; Hematocrit 43.9 % (37.5-50.1); Hemoglobin 14.6 g/dL (12.9-16.9); Immature Granulocytes % 0.8 % (0-4); Lymphocytes # 2.1 K/mcL (0.6-4.6); Mean Corpuscular HGB Conc 33.3 g/dL (31.6-35.5); Mean Corpuscular Hemoglobin 29.3 pg (28.0-33.3); Mean Platelet Volume 9.6 fL (9.4-12.4); Monocytes # 1.7 K/mcL (0.0-1.3); Monocytes % 9.4 %; Neutrophils # 13.5 K/mcL (1.6-8.9); Platelet Count 339 K/mcL (140-400); Red Blood Count 4.99 M/mcL (4.19-5.50); Red Cell Distribution Width 13.2 % (11.5-14.5); Segmented Neutrophils % 76.1 %
[2016-11-21 17:39] LABS: BUN/Creatinine Ratio 14 (6-26); Blood Urea Nitrogen 12 mg/dL (8-26); Calcium 9.3 mg/dL (8.6-10.8); Carbon Dioxide 27 mEq/L (19-29); Chloride 98 mEq/L (98-109); Glucose 115 mg/dL (70-99); Osmolality,Calculated 281 (280-300); Potassium 4.3 mEq/L (3.5-4.5); Sodium 135 mEq/L (136-145); eGFR For African Americans > 60 (> 60); eGFR For Non-African Americans > 60 (> 60)
[2016-11-21] MEDS: MetroNIDAZOLE 500 MG/100 ML 500 MG/100 ML BAG IVPB SCH ×2 (18:12→23:42)
[2016-11-22] MEDS: MetroNIDAZOLE 500 MG/100 ML 500 MG/100 ML BAG IVPB SCH ×4 (06:00→23:42)
--- NOTE | 2016-11-22 07:50 | Anesthesia Evaluation PreOp ---
Date of Encounter: 11/22/16 Time of Encounter: 09:10 - Past History Planned Operation: exploratory lap Cardiac History: Denies any Significant Hx Pulmonary History: Snore, KRYSTEN Dx OUTSIDE CUTTER History: Denies Any Significant HX Other Medical History: Other (obesity) Anesthesia History: No Prior Anesthetic Complications, Past Anesthesia ( Underwent exp. lap on 11/09 without anesthetic complications) Alcohol Use: occasionally Drug use: none Medications and Allergies Mv-Mn/FA/Vit K/Lycop/Lut/Coq10 [Daily Multivitamin Capsule] 1 each PO DAILY [History] Acetaminophen [Tylenol] 650 mg PO Q6HR PRN tablet 11/12/16 [Rx] 3 Allergy/AdvReac Type Severity Reaction Status Date / Time No Known Allergies Allergy Verified 11/08/16 12:40 - Meds/Allergy Pre-op Review Medications Reviewed: Yes Allergies Reviewed: Yes Beta Blockers on Current Med List: No Anesthesia Results - Labs 11/21/16 17:16 11/21/16 17:16 - Imaging EKG: report reviewed Anesthesia Exam Selected Entries 11/22/16 07:22 Temperature 97.7 F Pulse Rate 81 Respiratory Rate 18 Blood Pressure 179/81 O2 Sat by Pulse Oximetry 96 Height: 1.78 m Weight: 129 kg (BMI 40) NPO (# of Hours): over 8 hours - HEENT Mallampati: II Teeth: Normal Oral Opening: Greater than 3 (Required use of glidescope for ex. lap. Reportedly easy mask ventilation.) - OUTSIDE CUTTER LOC: Oriented - Cardiac Rhythm: Regular Murmur: None - Pulmonary Breath Sounds: bilateral Clear Respiratory Effort: Symmetrical Anesthesia Assess/Plan ASA Score: 3 Modified Faina Scale for Level of Consciousness: Cooperative, oriented, and tranquil Anesthetic Plan: General Recovery Plan: PACU
[2016-11-22] MEDS ORDERED: *HR* Midazolam HCl 2 MG/2 ML VIAL IVP PRN (07:52)
[2016-11-22] MEDS ORDERED: *HR* Meperidine 25 MG/ML SYRINGE IVP PRN (07:52)
[2016-11-22] MEDS ORDERED: *HR* Labetalol 20 MG/4 ML SYRINGE IVP PRN (07:52)
[2016-11-22] MEDS ORDERED: *HR* Promethazine 25 MG/ML VIAL IVP PRN (07:52)
[2016-11-22] MEDS ORDERED: *HR* HYDROmorphone (PF) 1 MG/ML SYRINGE IVP PRN (07:52)
[2016-11-22] MEDS ORDERED: *HR* Midazolam HCl 2 MG/2 ML VIAL ONE (08:14)
[2016-11-22] MEDS ORDERED: *HR* Propofol 200 MG/20 ML VIAL IVP ONE (08:14)
[2016-11-22] MEDS ORDERED: Dexamethasone 4 MG/ML VIAL ONE (08:14)
[2016-11-22] MEDS ORDERED: Lidocaine -MPF 2% 2 ML VIAL ONE (08:14)
[2016-11-22] MEDS ORDERED: Ondansetron 4 MG/2 ML VIAL ONE (08:14)
[2016-11-22] MEDS ORDERED: *HR* FentaNYL (PF) 100 MCG/2 ML VIAL ONE (08:14)
[2016-11-22] MEDS ORDERED: *HR* Succinylcholine 200 MG/10 ML VIAL IVP ONE (08:15)
--- NOTE | 2016-11-22 08:52 | General Surg History&Physical ---
Date of Encounter: 11/22/16 Time of Encounter: 08:10 History of Present Illness Chief complaint: Foul-smelling drainage, anterior abdominal wall; enterocutaneous fistula HPI: Mr. Vargas is a 66 year old male, approximate smoothly 14 days status post exploratory celiotomy with release of small bowel obstruction. The patient presented, 11/08/2016, to [facility] Emergency Department with new onset abdominal distention and pain. CT of the abdomen and pelvis was reported to demonstrate a 5.0 x 8.8 cm periumbilical hernia containing several loops of small bowel. Additionally, several loops of small bowel proximal to the hernia appeared to be moderately distended with the loops of small bowel distal to the hernia collapsed. A transition zone was described within the hernia. On my review of these images the transition zone and small bowel obstruction was not due to a recurrent hernia but rather small bowel adherent to a previous hernia repair with mesh. The patient was taken to surgery. It was necessary to resect a short segment of small bowel densely adherent to the mesh prosthesis. The mesh prosthesis was also removed. There was no evidence of a recurrent hernia. A stapled enteroenterostomy was completed. Patient returned to my office, 09/20/16, with fou; smelling drainage from the midline incision. There was no fever, chills, N/V or abdominal pain. The patient was moving his bowels. The drainage had the appearance of succus entericus. A CT completed the following morning confirmed the presence of a contained leak. The patient was admitted to [facility], IV fluids and IV antibiotics administered, and surgical intervention scheduled. Past medical history: Recurrent ventral hernias; the most recent surgery September 2013 with repair of a complex periumbilical ventral hernia with partial omentectomy using Covidien Symbotex 10 x 15 cm composite mesh; truncal obesity Allergies: No known drug allergies Medications: No routine home medications; the patient was not taking pain meds Social history: The patient is , lives at home with his spouse; he does not smoke and never has; he denies any illicit drug use or alcohol. Family history: noncontributory Physical examination: Age-appropriate male; in no acute distress but distressed by the foul- smelling drainage. Patient has been afebrile, currently 97.7, pulse 81, respirations 18, blood pressure 179/81. He is 1.78 m tall, weight 129.3 kg, BMI 40.9 Skin is warm; no obvious jaundice Lungs: Clear bilaterally without obvious abdominal pain on deep inspiration Cardiac: Regular rate, no appreciable murmurs Abdomen: Protuberant, soft, nontender with active bowel sounds. Minimal tenderness in the midline incision caudal to the umbilicus. Succus entericus draining from this portion of the incision. There was no rebound elicited Extremities: No obvious clubbing, is cyanosis or edema Laboratories: White count 17.8, hemoglobin 14.6, hematocrit 43.9; weight: 339, 000. Neutrophils 13.5% Sodium 135, potassium 4.3, BUN 12, creatinine 0.85 Impression: A 66-year-old male, approximately 14 days postop, returns to my office with new onset foul-smelling drainage consistent with succus entericus. The patient was in no acute distress with no peritonitis but it appeared that the small bowel resection with stapled enteroenterostomy has failed or leaked. This was confirmed by CT. The patient will undergo an exploratory celiotomy with resection of this anastomosis. We discussed possible ileostomy versus an enteroenterostomy. Risks include hemorrhage, infection, intra-abdominal abscess, if an anastomosis is created, a recurrent anastomotic failure/leak; cardiac and respiratory risks. Consent has been obtained. Past Med Surg Social Fam HX - Past Medical History Medical history: no medical history Psychiatric history: no psych history - Past Surgical History Surgical History: herniorrhaphy - Social History Smoking Status: Never smoker Smokeless Tobacco Status: No Alcohol use: occasionally Drug use: none - Family History Father Living Status: Hx Family Cancer: Yes (lung) Medications and Allergies Mv-Mn/FA/Vit K/Lycop/Lut/Coq10 [Daily Multivitamin Capsule] 1 each PO DAILY [History] Acetaminophen [Tylenol] 650 mg PO Q6HR PRN tablet 11/12/16 [Rx] 3 Allergy/AdvReac Type Severity Reaction Status Date / Time No Known Allergies Allergy Verified 11/08/16 12:40 Review of Systems All systems PM: A 10-system review of systems was performed and is negative for pertinent findings except as documented above in the HPI. General Surgery Exam Initial Vital Signs Temp Pulse Resp BP Pulse Ox 98.4 F 88 18 173/94 97 11/21/16 18:21 11/21/16 18:21 11/21/16 18:21 11/21/16 18:21 11/21/16 18:21 Results - Labs 11/21/16 17:16 11/21/16 17:16 Abnormal lab results WBC 17.8 K/mcL (4.3-11.1) H 11/21/16 17:16 Neutrophils # 13.5 K/mcL (1.6-8.9) H 11/21/16 17:16 Monocytes # 1.7 K/mcL (0.0-1.3) H 11/21/16 17:16 Sodium 135 mEq/L (136-145) L 11/21/16 17:16 Glucose 115 mg/dL (70-99) H 11/21/16 17:16 Diabetes panel 11/21/16 Range/Units 17:16 Sodium 135 L (136-145) mEq/L Potassium 4.3 (3.5-4.5) mEq/L Chloride 98 (98-109) mEq/L Carbon Dioxide 27 (19-29) mEq/L BUN 12 (8-26) mg/dL Creatinine 0.85 (0.72-1.25) mg/dL Glucose 115 H (70-99) mg/dL Calcium 9.3 (8.6-10.8) mg/dL Calcium panel 11/21/16 Range/Units 17:16 Calcium 9.3 (8.6-10.8) mg/dL Pituitary panel 11/21/16 Range/Units 17:16 Sodium 135 L (136-145) mEq/L Potassium 4.3 (3.5-4.5) mEq/L Chloride 98 (98-109) mEq/L Carbon Dioxide 27 (19-29) mEq/L BUN 12 (8-26) mg/dL Creatinine 0.85 (0.72-1.25) mg/dL Glucose 115 H (70-99) mg/dL Calcium 9.3 (8.6-10.8) mg/dL Adrenal panel 11/21/16 Range/Units 17:16 Sodium 135 L (136-145) mEq/L Potassium 4.3 (3.5-4.5) mEq/L Chloride 98 (98-109) mEq/L Carbon Dioxide 27 (19-29) mEq/L BUN 12 (8-26) mg/dL Creatinine 0.85 (0.72-1.25) mg/dL Glucose 115 H (70-99) mg/dL Calcium 9.3 (8.6-10.8) mg/dL All other labs normal.
[2016-11-22] MEDS ORDERED: *HR* HYDROmorphone 2 MG/ML SYRINGE ONE (11:07)
[2016-11-22] MEDS ORDERED: Ringers Solution, Lactated 500 ML IVC ONE (11:54)
--- NOTE | 2016-11-22 12:05 | Operative Note ---
Date of procedure: 11/22/16 Pre-op diagnosis: enterocutaneous fistula, anastomotic leak Post-op diagnosis: same Procedure: Exploratory celiotomy, small bowel resection; stapled enteroenterostomy Complications: none apparent Anesthesia: MIAH Surgeon: Cheng Hannah Violin Restorer: Jayjay Pisano Estimated blood loss (cc): 100 IV fluids (cc): 1,000 Specimen: small bowel segment containing anastomosis Condition: stable Disposition: PACU Procedure in Detail: The patient was brought to the operating room where he was placed on the operating room table. Operative consent had been obtained preoperatively. The patient was appropriately identified as to person and procedure. Accuracy of this information was confirmed by the procedure team. The patient was then intubated and anesthetized under the supervision of Dr. Winnie Merchant. The abdomen was prepped and draped in the usual sterile fashion. The previous midline incision was opened and dissection carried through the subcutaneous tissue and fascia. I was able to enter the abdomen atraumatically. Using blunt dissection, several loops of bowel adherent to the anterior abdominal wall were mobilized. Additional lysis of adhesions and during approximately 20 minutes as necessary to free the loops of small bowel from one another. This ultimately allowed me to isolate the small bowel anastomosis which was the apparent source for the enterocutaneous fistula. A tiny, 2 mm, defect in the staple line was identified and the source of the succus entericus draining through the anterior abdominal wall. The rest of the small bowel appeared normal. The small bowel proximal and distal to the anastomosis was transected with the aid of an Ethicon 75 mm linear stapler. The mesentery was divided with the aid of a Covidien Impact Dissector. A segment of small bowel with the failed anastomosis was removed and sent to pathology for analysis. The abdomen was reexamined and no other abnormalities identified. The small bowel was placed side by side and approximated with interrupted 3-0 silk. The ends were opened to allow placement of an Ethicon 75 mm stapler to complete a side-to- side stapled functional end-to-end anastomosis. The remaining defect in the small bowel was closed with an Ethicon TX 60 mm stapler using 3.5 mm ben ( green cartridge). The mesenteric defect was closed with interrupted 3-0 silk. 6 #2 Ethilon retention sutures were placed through and through the anterior abdominal wall. The fascia was then approximated with interrupted figure-of- eight of 0 Vicryl. The subcutaneous tissue was reapproximated with running 3-0 Vicryl. Skin edges were approximated with ben. The retention sutures were secured/tied. A dry sterile dressing was applied followed by an abdominal binder. The patient was taken to recovery in stable condition. Needle, sponge , and instrument counts were correct at the close of the case.
--- NOTE | 2016-11-22 12:22 | Anesthesia Evaluation Post Op ---
Date of Encounter: 11/22/16 Time of Encounter: 12:25 - Vital Signs Vital Signs: Selected Entries 11/22/16 12:09 Pulse Rate 76 Respiratory Rate 18 Blood Pressure 164/78 O2 Sat by Pulse Oximetry 91 - Lungs Lungs: Clear Ascult./Percussion - Airway Airway: Non-obstructed - Cardiovascular Regular Rate - Mental Status Mental Status: Alert & Oriented, Answers Appropriately, Sedated - Nausea Vomiting Nausea Vomiting: Not Present - Hydration Hydration: NPO - Discharge PostOp Status: Transfer Patient to floor
[2016-11-22] MEDS ORDERED: *HR* HYDROmorphone 20 MG/20 ML PCA IVC PRN (12:35)
[2016-11-22] MEDS ORDERED: Ondansetron 4 MG/2 ML VIAL IVP PRN (12:35)
[2016-11-22] MEDS ORDERED: Artificial Tears SOLN 15 ML BOTTLE BOTH EYES PRN (16:46)
[2016-11-22] MEDS: Ringers Solution, Lactated 1,000 ML IVC SCH (20:02)
[2016-11-23] MEDS: MetroNIDAZOLE 500 MG/100 ML 500 MG/100 ML BAG IVPB SCH ×4 (05:22→23:34)
[2016-11-23 07:23] LABS: Basophils # 0.1 K/mcL (0.0-0.2); Basophils % 0.3 %; Eosinophils # 0.1 K/mcL (0.0-0.6); Eosinophils % 0.6 %; Hematocrit 42.5 % (37.5-50.1); Hemoglobin 14.1 g/dL (12.9-16.9); Immature Granulocytes % 0.8 % (0-4); Lymphocytes # 2.3 K/mcL (0.6-4.6); Lymphocytes % 10.8 %; Mean Corpuscular HGB Conc 33.2 g/dL (31.6-35.5); Mean Corpuscular Hemoglobin 29.3 pg (28.0-33.3); Mean Corpuscular Volume 88.4 fL (83.0-100.0); Mean Platelet Volume 9.9 fL (9.4-12.4); Monocytes % 9.1 %; Platelet Count 359 K/mcL (140-400); Red Blood Count 4.81 M/mcL (4.19-5.50); Red Cell Distribution Width 13.5 % (11.5-14.5); Segmented Neutrophils % 78.4 %
[2016-11-23 07:36] LABS: BUN/Creatinine Ratio 15 (6-26); Blood Urea Nitrogen 13 mg/dL (8-26); Calcium 8.8 mg/dL (8.6-10.8); Carbon Dioxide 28 mEq/L (19-29); Chloride 101 mEq/L (98-109); Glucose 135 mg/dL (70-99); Osmolality,Calculated 282 (280-300); Potassium 4.6 mEq/L (3.5-4.5); Sodium 135 mEq/L (136-145); eGFR For African Americans > 60 (> 60); eGFR For Non-African Americans > 60 (> 60)
[2016-11-23] MEDS: Ringers Solution, Lactated 1,000 ML IVC SCH ×3 (09:46→23:34)
[2016-11-23] MEDS: Pantoprazole 40 MG VIAL IVP SCH (09:46)
[2016-11-24] MEDS: MetroNIDAZOLE 500 MG/100 ML 500 MG/100 ML BAG IVPB SCH ×3 (05:19→16:52)
[2016-11-24] MEDS: Pantoprazole 40 MG VIAL IVP SCH (08:44)
[2016-11-24] MEDS: Ringers Solution, Lactated 1,000 ML IVC SCH (11:59)
--- NOTE | 2016-11-24 12:27 | General Surgery Progress Note ---
Date of Encounter: 11/23/16 Time of Encounter: 12:00 Subjective Patient reports: feels better, still having pain, pain is less Narrative: General Surgery - POD #1 - this a delayed note as the note written yesterday is not available for perusal Patient Afeb - VSS feeling better; incisional pain as expected. Abdominal pain decreased from pre op state Lungs: clear to auscultation; no abd pain with inspiration Abdomen: soft, quiet; small amount serous drainage onto surgical dressing. Dressing changed. Laboratories: White count 21.7, hemoglobin 14.1, hematocrit 42.5. Neutrophils 17% Electrolytes, BUN, creatinine stable and within normal limits. Impression: Postoperative day 1, status post exploratory celiotomy small bowel resection, revision of prior stapled enteroenterostomy. acceptable post op status Plan: continue IV ATB maintain NPO encourage activity out of bed; ambulate Objective Vital Signs - Last 8 Hours Temp Pulse Resp BP Pulse Ox 11/24/16 11:15 97.7 F 78 18 164/82 96 11/24/16 05:45 98.7 F 79 16 171/92 94 Intake and Output 11/23/16 11/24/16 11/24/16 23:59 07:59 15:59 Intake Total 1200 / 1200 819 / 819 581 / 581 Output Total 400 / 400 200 / 200 200 / 200 Balance 800 / 800 619 / 619 381 / 381 Intake: IV Fluids 1200 / 1200 819 / 819 581 / 581 Lactated Ringers 1,000 ML @ 90 1000 / 1000 419 / 419 581 / 581 mls/hr IVC .Q11H7M [facility] Rx#: [id number] Cipro Premix 400 MG/200 ML 400 200 / 200 200 / 200 mg In 200 ml @ 200 mls/hr IVPB Q12H [facility] Rx#:[id number] Flagyl Premix 500 MG/100 ML 500 0 / 0 200 / 200 mg In 100 ml @ 100 mls/hr IVPB Q6H [facility] Rx#:[id number] Oral 0 / 0 0 / 0 Output: Urine 400 / 400 200 / 200 200 / 200 Other: Meal npo # Voids 1 Blood Glucose* 120 135 116 - Labs 11/23/16 06:58 11/23/16 06:58 - VTE Documentation of Mechanical Device: Intermittent pneumatic compression device Consult Discharge Plan - Plan Referrals: Fabian Jarrett DO [Primary Care Provider] -
--- NOTE | 2016-11-24 12:33 | General Surgery Progress Note ---
Date of Encounter: 11/24/16 Time of Encounter: 12:27 Subjective Patient reports: feels better, pain is less Narrative: General Surgery - POD #2 Patient seated at bedside; voicing no complaints. In good spirits. Afebrile, currently 97.7; pulse 78, respirations 18, blood pressure 164/82. Lungs: Clear Abdomen: Protuberant (likely baseline); quiet. Increased serous drainage infraumbilical portion of the midline incision. Incision macerated in the area of increased serous drainage; skin edges well approximated. Urine output 800 mL for calendar day 11/23/16; 400 mL so far today. Impression: POD #2 - acceptable status no detected peritonitis; no evidence recurrent leak serous drainage from incision in region of prior enterocutaneous fistula with most pronounced inflammation at the time of surgery. Plan: increase dressing changes to Q4H - use Maxsorb AG - maintain NPO until bowel activity returns encourage activity out of bed including incentive Objective Vital Signs - Last 8 Hours Temp Pulse Resp BP Pulse Ox 11/24/16 11:15 97.7 F 78 18 164/82 96 11/24/16 05:45 98.7 F 79 16 171/92 94 Intake and Output 11/23/16 11/24/16 11/24/16 23:59 07:59 15:59 Intake Total 1200 / 1200 819 / 819 581 / 581 Output Total 400 / 400 200 / 200 200 / 200 Balance 800 / 800 619 / 619 381 / 381 Intake: IV Fluids 1200 / 1200 819 / 819 581 / 581 Lactated Ringers 1,000 ML @ 90 1000 / 1000 419 / 419 581 / 581 mls/hr IVC .Q11H7M [facility] Rx#: [id number] Cipro Premix 400 MG/200 ML 400 200 / 200 200 / 200 mg In 200 ml @ 200 mls/hr IVPB Q12H [facility] Rx#:[id number] Flagyl Premix 500 MG/100 ML 500 0 / 0 200 / 200 mg In 100 ml @ 100 mls/hr IVPB Q6H [facility] Rx#:[id number] Oral 0 / 0 0 / 0 Output: Urine 400 / 400 200 / 200 200 / 200 Other: Meal npo # Voids 1 Blood Glucose* 120 135 116 - Labs 11/23/16 06:58 11/23/16 06:58 - VTE Documentation of Mechanical Device: Intermittent pneumatic compression device Consult Discharge Plan - Plan Referrals: Fabain Jarrett DO [Primary Care Provider] -
--- NOTE | 2016-11-24 12:43 | General Surgery Progress Note ---
Date of Encounter: 11/24/16 Time of Encounter: 12:15 Subjective Narrative: General Surgery - Hospital Day #2 - patient awake and alert today and able to participate in decision making. 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 Surrounding erythema markedly diminished. Left arm: Nontender, approximately 2 cm subcutaneous abscess lateral mid biceps region. Previously noted erythema also markedly diminished/reduced The patient remains afebrile, currently 97.6, pulse 90, respirations 18, blood pressure 129/85. Lungs: Clear Cardiac: Regular rate, no appreciable murmurs Abdomen: Soft nontender. No obvious intra-abdominal masses. Active bowel sounds Extremities: Bilateral abscesses as described above; swelling/edema distal right extremity/hand. Incision and drainage of both arms discussed. Risks include hemorrhage, persistent or recurrent infection, and failure to heal. The procedure was discussed in detail. The incisions will be left open or partially closed to permit continued post op drainage and resolution the bilateral abscesses. Patient expressed understanding - surgical consent obtained Additions to medical history: History of hepatitis Current every day smoker Drug use including opiates, methamphetamines, heroin Objective Vital Signs - Last 8 Hours Temp Pulse Resp BP Pulse Ox 11/24/16 11:15 97.7 F 78 18 164/82 96 11/24/16 05:45 98.7 F 79 16 171/92 94 Intake and Output 11/23/16 11/24/16 11/24/16 23:59 07:59 15:59 Intake Total 1200 / 1200 819 / 819 581 / 581 Output Total 400 / 400 200 / 200 200 / 200 Balance 800 / 800 619 / 619 381 / 381 Intake: IV Fluids 1200 / 1200 819 / 819 581 / 581 Lactated Ringers 1,000 ML @ 90 1000 / 1000 419 / 419 581 / 581 mls/hr IVC .Q11H7M [facility] Rx#: [id number] Cipro Premix 400 MG/200 ML 400 200 / 200 200 / 200 mg In 200 ml @ 200 mls/hr IVPB Q12H [facility] Rx#:[id number] Flagyl Premix 500 MG/100 ML 500 0 / 0 200 / 200 mg In 100 ml @ 100 mls/hr IVPB Q6H [facility] Rx#:[id number] Oral 0 / 0 0 / 0 Output: Urine 400 / 400 200 / 200 200 / 200 Other: Meal npo # Voids 1 Blood Glucose* 120 135 116 - Labs 11/23/16 06:58 11/23/16 06:58 - VTE Documentation of Mechanical Device: Intermittent pneumatic compression device Consult Discharge Plan - Plan Referrals: Fabian Jarrett DO [Primary Care Provider] -
[2016-11-24] MEDS: D5% in 0.45% NACL 1,000 ML IVC SCH (14:19)
[2016-11-24] MEDS: *HR* Heparin 5,000 UNIT/ML VIAL SQ SCH (16:52)
--- NOTE | 2016-11-24 18:36 | Event Note ---
Date of Encounter: 11/24/16 Time of Encounter: 18:33 Patient doing well. Nursing reports significant increase in activity OOB and ambulating in the hallways With increased activity, no significant increase in transabdominal drainage thru the incision. Urine output appro 760 mL so far this date but urine described by the patient as dark; Nursing describe the urine as "tea colored" Will check comprehensive metabolic profile in AM.
[2016-11-25] MEDS: MetroNIDAZOLE 500 MG/100 ML 500 MG/100 ML BAG IVPB SCH ×4 (00:44→17:16)
[2016-11-25 03:25] LABS: Basophils # 0.1 K/mcL (0.0-0.2); Basophils % 0.5 %; Eosinophils # 0.6 K/mcL (0.0-0.6); Eosinophils % 3.8 %; Hematocrit 39.1 % (37.5-50.1); Hemoglobin 12.8 g/dL (12.9-16.9); Immature Granulocytes % 1.3 % (0-4); Lymphocytes # 2.5 K/mcL (0.6-4.6); Lymphocytes % 15.8 %; Mean Corpuscular HGB Conc 32.7 g/dL (31.6-35.5); Mean Corpuscular Hemoglobin 29.2 pg (28.0-33.3); Mean Corpuscular Volume 89.1 fL (83.0-100.0); Monocytes # 1.4 K/mcL (0.0-1.3); Monocytes % 8.6 %; Neutrophils # 11.1 K/mcL (1.6-8.9); Platelet Count 379 K/mcL (140-400); Red Blood Count 4.39 M/mcL (4.19-5.50); Red Cell Distribution Width 13.4 % (11.5-14.5)
[2016-11-25 04:01] LABS: Alanine Aminotransferase 24 Units/L (0-55); Albumin/Globulin Ratio 0.5 (1.1-2.2); Alkaline Phosphatase 61 Units/L (38-126); Aspartate Amino Transferase 30 Units/L (5-34); BUN/Creatinine Ratio 16 (6-26); Bilirubin,Total 0.5 mg/dL (0.2-1.2); Blood Urea Nitrogen 12 mg/dL (8-26); Calcium 8.4 mg/dL (8.6-10.8); Carbon Dioxide 24 mEq/L (19-29); Chloride 102 mEq/L (98-109); Glucose 120 mg/dL (70-99); Osmolality,Calculated 279 (280-300); Potassium 4.3 mEq/L (3.5-4.5); Sodium 134 mEq/L (136-145); eGFR For African Americans > 60 (> 60); eGFR For Non-African Americans > 60 (> 60)
[2016-11-25] MEDS: *HR* Heparin 5,000 UNIT/ML VIAL SQ SCH ×2 (05:11→17:17)
[2016-11-25] MEDS ORDERED: *HR* HYDROmorphone (PF) 1 MG/ML SYRINGE IVP PRN (08:59)
[2016-11-25] MEDS: D5% in 0.45% NACL 1,000 ML IVC SCH ×2 (09:02→16:00)
[2016-11-25] MEDS: Pantoprazole 40 MG VIAL IVP SCH (09:02)
--- NOTE | 2016-11-25 15:00 | General Surgery Progress Note ---
Date of Encounter: 11/25/16 Time of Encounter: 14:53 Subjective Patient reports: feels better Narrative: General Surgery: POD #3 patient feeling better; pain with movement especially getting in and/or out of bed Afebrile, currently 98.0; pulse 70-83; respirations 1618 and unlabored; the pressure 165/91. SPO2 on room air 96% Lungs: Clear to auscultation, no abdominal pain and discoloration Abdomen: Protuberant (likely baseline) active bowel sounds. Patient reports passage of flatus. Persistent drainage from the lower midportion of the midline incision. Skin edges well approximated the remainder of the incision appears to be healing well Urine output 760 mL for calendar day 11/24/16; 300 mL so far today Urine remains dark but labs/chemistries all within acceptable range Laboratories: Leukocytosis continues to trend downward, 15.9; hemoglobin 12.8 with hematocrit 39.1. Neutrophilia also trending downward, 11.1% Sodium 134, other electrolytes within normal limits, BUN 12, creatinine 0.75. Bilirubin 0.5, AST 30, ALT 24, alkaline phosphatase 61. Total protein 6.0, albumin 2.0; pre-albumin 7.0 Impression: Postoperative day #3, status post exploratory laparotomy revision of disrupted/failed stapled enteroenterostomy Acceptable status. Bowel function appears to be returning; we will initiate clear liquid diet Maintain IV antibiotics until leukocytosis & neutrophilia resolved Hyponatremia without obvious symptoms/sequelae Objective Vital Signs - Last 8 Hours Temp Pulse Resp BP Pulse Ox 11/25/16 11:35 98.0 F 70 16 165/91 96 11/25/16 07:25 97.7 F 83 18 157/90 96 Intake and Output 11/24/16 11/25/16 11/25/16 23:59 07:59 15:59 Intake Total 100 / 100 1400 / 1400 Output Total 360 / 360 300 / 300 Balance -260 / -260 1100 / 1100 Intake: IV Fluids 100 / 100 1400 / 1400 D5% And 0.45% Nacl 1000 Ml Bag 1000 / 1000 1,000 ML @ 60 mls/hr IVC . [id number] [facility] Rx#:[id number] Cipro Premix 400 MG/200 ML 400 200 / 200 mg In 200 ml @ 200 mls/hr IVPB Q12H [facility] Rx#:[id number] Flagyl Premix 500 MG/100 ML 500 100 / 100 200 / 200 mg In 100 ml @ 100 mls/hr IVPB Q6H [facility] Rx#:[id number] Oral 0 / 0 Output: Urine 360 / 360 300 / 300 Other: Meal npo NPO LUNCH Blood Glucose* 134 119 138 - Labs 11/25/16 02:35 11/25/16 02:35 Diabetes panel 11/25/16 Range/Units 02:35 Sodium 134 L (136-145) mEq/L Potassium 4.3 (3.5-4.5) mEq/L Chloride 102 (98-109) mEq/L Carbon Dioxide 24 (19-29) mEq/L BUN 12 (8-26) mg/dL Creatinine 0.75 (0.72-1.25) mg/dL Glucose 120 H (70-99) mg/dL Calcium 8.4 L (8.6-10.8) mg/dL AST 30 (5-34) Units/L ALT 24 (0-55) Units/L Alkaline Phosphatase 61 (38-126) Units/L Albumin 2.0 L (3.5-5.0) g/dL Calcium panel 11/25/16 Range/Units 02:35 Calcium 8.4 L (8.6-10.8) mg/dL Albumin 2.0 L (3.5-5.0) g/dL Pituitary panel 11/25/16 Range/Units 02:35 Sodium 134 L (136-145) mEq/L Potassium 4.3 (3.5-4.5) mEq/L Chloride 102 (98-109) mEq/L Carbon Dioxide 24 (19-29) mEq/L BUN 12 (8-26) mg/dL Creatinine 0.75 (0.72-1.25) mg/dL Glucose 120 H (70-99) mg/dL Calcium 8.4 L (8.6-10.8) mg/dL Adrenal panel 11/25/16 Range/Units 02:35 Sodium 134 L (136-145) mEq/L Potassium 4.3 (3.5-4.5) mEq/L Chloride 102 (98-109) mEq/L Carbon Dioxide 24 (19-29) mEq/L BUN 12 (8-26) mg/dL Creatinine 0.75 (0.72-1.25) mg/dL Glucose 120 H (70-99) mg/dL Calcium 8.4 L (8.6-10.8) mg/dL Total Bilirubin 0.5 (0.2-1.2) mg/dL AST 30 (5-34) Units/L ALT 24 (0-55) Units/L Alkaline Phosphatase 61 (38-126) Units/L Albumin 2.0 L (3.5-5.0) g/dL - VTE Documentation of Mechanical Device: Intermittent pneumatic compression device Consult Discharge Plan - Plan Referrals: Fabian Jarrett DO [Primary Care Provider] -
[2016-11-26] MEDS: MetroNIDAZOLE 500 MG/100 ML 500 MG/100 ML BAG IVPB SCH ×2 (00:30→06:16)
[2016-11-26] MEDS: *HR* Heparin 5,000 UNIT/ML VIAL SQ SCH ×2 (06:17→18:29)
[2016-11-26 06:49] LABS: Basophils # 0.1 K/mcL (0.0-0.2); Basophils % 0.7 %; Eosinophils # 0.5 K/mcL (0.0-0.6); Hematocrit 38.5 % (37.5-50.1); Hemoglobin 12.7 g/dL (12.9-16.9); Immature Granulocytes % 1.5 % (0-4); Lymphocytes # 2.3 K/mcL (0.6-4.6); Lymphocytes % 16.9 %; Mean Corpuscular Hemoglobin 29.1 pg (28.0-33.3); Mean Corpuscular Volume 88.1 fL (83.0-100.0); Mean Platelet Volume 9.7 fL (9.4-12.4); Monocytes % 7.1 %; Neutrophils # 9.5 K/mcL (1.6-8.9); Platelet Count 440 K/mcL (140-400); Red Blood Count 4.37 M/mcL (4.19-5.50); Red Cell Distribution Width 13.3 % (11.5-14.5); Segmented Neutrophils % 69.8 %
[2016-11-26] MEDS: Pantoprazole 40 MG VIAL IVP SCH (08:14)
--- NOTE | 2016-11-26 10:21 | General Surgery Progress Note ---
<Jayjay Pisano - Last Filed: 11/26/16 10:14> Date of Encounter: 11/26/16 Time of Encounter: 07:50 Subjective Patient reports: feels better Narrative: General Surgery: POD #4 patient continues to feel better; pain associated with movement is improving , only requested pain medication once Afebrile, currently 98.0; pulse 72-81; respirations 14 and unlabored; the pressure 176/83. SPO2 on room air 96% Lungs: Clear to auscultation Abdomen: Protuberant (likely baseline) active bowel sounds. Patient reports passage of flatus. Persistent drainage from the lower midportion of the midline incision has decreased. Skin edges well approximated the remainder of the incision appears to be healing well Urine output 1000 mL for calendar day 11/25/16; 300 mL so far today Laboratories: Leukocytosis continues to trend downward, 13.6; hemoglobin 12.7 with hematocrit 38.5. Neutrophilia also trending downward, 9.5% Impression: Postoperative day #4, status post exploratory laparotomy revision of disrupted/failed stapled enteroenterostomy Acceptable status. Bowel function appears to be returning; tolerated clear liquid diet will, will advance to full liquid diet Discontinue antibiotics as patient is afebrile and leukocytosis and neutrophilia continues to improve. 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 Will transition to tylenol for pain with percocet available for breakthrough. Transition to oral omeprazole Objective Vital Signs - Last 8 Hours Temp Pulse Resp BP Pulse Ox 11/26/16 10:06 98.0 F 76 14 176/83 96 11/26/16 07:00 97.7 F 71 14 175/91 95 11/26/16 03:37 97.6 F 72 18 166/92 96 Intake and Output 11/25/16 11/26/16 11/26/16 23:59 07:59 15:59 Intake Total 300 / 300 600 / 600 240 / 240 Output Total 700 / 700 300 / 300 0 / 0 Balance -400 / -400 300 / 300 240 / 240 Intake: IV Fluids 300 / 300 300 / 300 Cipro Premix 400 MG/200 ML 400 200 / 200 200 / 200 mg In 200 ml @ 200 mls/hr IVPB Q12H [facility] Rx#:[id number] Flagyl Premix 500 MG/100 ML 500 100 / 100 100 / 100 mg In 100 ml @ 100 mls/hr IVPB Q6H [facility] Rx#:[id number] Oral 300 / 300 240 / 240 Output: Urine 700 / 700 300 / 300 0 / 0 Other: Weight 127.1 kg Patient Weight 11/26/16 23:59 Weight 127.1 kg - Labs 11/26/16 06:16 11/25/16 02:35 - VTE Documentation of Mechanical Device: Intermittent pneumatic compression device Consult Discharge Plan - Plan Referrals: Cheng Hannah MD [Non-Partnered Physician] - Fabian Jarrett DO [Primary Care Provider] - <Cheng Hannah - Last Filed: 11/26/16 11:54> Date of Encounter: 11/26/16 Objective Vital Signs - Last 8 Hours Temp Pulse Resp BP Pulse Ox 11/26/16 10:06 98.0 F 76 14 176/83 96 11/26/16 07:00 97.7 F 71 14 175/91 95 Intake and Output 11/25/16 11/26/16 11/26/16 23:59 07:59 15:59 Intake Total 300 / 300 600 / 600 240 / 240 Output Total 700 / 700 300 / 300 0 / 0 Balance -400 / -400 300 / 300 240 / 240 Intake: IV Fluids 300 / 300 300 / 300 Cipro Premix 400 MG/200 ML 400 200 / 200 200 / 200 mg In 200 ml @ 200 mls/hr IVPB Q12H [facility] Rx#:[id number] Flagyl Premix 500 MG/100 ML 500 100 / 100 100 / 100 mg In 100 ml @ 100 mls/hr IVPB Q6H [facility] Rx#:[id number] Oral 300 / 300 240 / 240 Output: Urine 700 / 700 300 / 300 0 / 0 Other: Weight 127.1 kg Patient Weight 11/26/16 23:59 Weight 127.1 kg - Labs 11/26/16 06:16 11/25/16 02:35 - Attending Attestation I have examined the patient and discussed the care plan with Dr Pisano. I agree with the findings and current treatment.
[2016-11-26] MEDS: *HR* OxyCODONE/APAP 5/325 TABLET PO PRN (15:17)
[2016-11-26] MEDS: D5% in 0.45% NACL 1,000 ML IVC SCH (15:20)
[2016-11-27] MEDS: *HR* OxyCODONE/APAP 5/325 TABLET PO PRN (00:33)
[2016-11-27] MEDS: *HR* Heparin 5,000 UNIT/ML VIAL SQ SCH ×2 (05:39→20:06)
[2016-11-27 06:08] LABS: Basophils # 0.1 K/mcL (0.0-0.2); Basophils % 0.8 %; Eosinophils # 0.6 K/mcL (0.0-0.6); Eosinophils % 4.1 %; Hematocrit 38.2 % (37.5-50.1); Hemoglobin 12.7 g/dL (12.9-16.9); Immature Granulocytes % 1.8 % (0-4); Immature Platelets 4.2 % (1.1-6.1); Lymphocytes # 2.6 K/mcL (0.6-4.6); Lymphocytes % 18.6 %; Mean Corpuscular HGB Conc 33.2 g/dL (31.6-35.5); Mean Corpuscular Hemoglobin 29.1 pg (28.0-33.3); Mean Corpuscular Volume 87.6 fL (83.0-100.0); Mean Platelet Volume 10.2 fL (9.4-12.4); Monocytes % 7.3 %; Neutrophils # 9.6 K/mcL (1.6-8.9); Platelet Count 437 K/mcL (140-400); Red Blood Count 4.36 M/mcL (4.19-5.50); Red Cell Distribution Width 13.2 % (11.5-14.5); Segmented Neutrophils % 67.4 %
[2016-11-27] MEDS: D5% in 0.45% NACL 1,000 ML IVC SCH (10:01)
--- NOTE | 2016-11-27 11:51 | General Surgery Progress Note ---
Date of Encounter: 11/27/16 Time of Encounter: 11:45 Subjective Patient reports: no new complaints, flatus Narrative: General Surgery - POD #5 Patient remains afebrile, currently 97.3; pulse 74, respirations 16, blood pressure 182/90 despite hydralazine through the night. Lisinopril 10 mg by mouth daily initiated. Despite the high blood pressure, the patient voices no additional complaints; he denies significant abdominal pain He has passed copious flatus in the last 12 hours. Lungs: Clear to auscultation Abdomen: Protuberant, soft, nontender. The midline incision demonstrates a small amount of serous sanguinous fluid on the dressing caudal to the umbilicus. The rest of the incision is clean, dry and healing well. Urine output 1000 mL for calendar day 11/25/69; 975 mL so far today. Laboratories: Leukocytosis essentially unchanged, 14.2, hemoglobin stable at 12.7 with hematocrit 38.2. Platelet count 437,000. Neutrophilia also stable at 9.6% (previously 9.5%) Impression: Postoperative day 5, status post sports or laparotomy, revision/ resection of disrupted enteroenterostomy. Patient appears to be doing well. Crampy abdominal pain in the last 12 hours most likely due to resumption of bowel activity. No abdominal tenderness or peritoneal signs taken out of of a recurrent anastomotic leak. Plan: Continue to monitor, CBC in a.m. discontinue IVs as it appears the patient is taking in sufficient enteral fluids. Objective Vital Signs - Last 8 Hours Temp Pulse Resp BP Pulse Ox 11/27/16 07:22 97.3 F L 74 16 182/90 95 Intake and Output 11/26/16 11/27/16 11/27/16 23:59 07:59 15:59 Intake Total 640 / 640 100 / 100 1240 / 1240 Output Total 325 / 325 700 / 700 260 / 260 Balance 315 / 315 -600 / -600 980 / 980 Intake: IV Fluids 1000 / 1000 D5% And 0.45% Nacl 1000 Ml Bag 1000 / 1000 1,000 ML @ 40 mls/hr IVC .Q24H [facility] Rx#:[id number] Oral 640 / 640 100 / 100 240 / 240 Output: Urine 325 / 325 700 / 700 260 / 260 Other: Meal Dinner Breakfast Percent of Meal Consumed 0% 5% Weight 127.414 kg Patient Weight 10/19/17 23:59 Weight 127.414 kg - Labs 11/27/16 04:47 11/25/16 02:35 - VTE Documentation of Mechanical Device: Intermittent pneumatic compression device Consult Discharge Plan - Plan Referrals: Cheng Hannah MD [Non-Partnered Physician] - Fabian Jarrett DO [Primary Care Provider] - Prescriptions: Lisinopril [Zestril] 10 mg PO DAILY #30 tablet
[2016-11-28 05:06] LABS: Basophils # 0.1 K/mcL (0.0-0.2); Eosinophils # 0.5 K/mcL (0.0-0.6); Eosinophils % 3.3 %; Hematocrit 40.2 % (37.5-50.1); Hemoglobin 13.3 g/dL (12.9-16.9); Immature Granulocytes % 1.9 % (0-4); Lymphocytes # 2.6 K/mcL (0.6-4.6); Mean Corpuscular HGB Conc 33.1 g/dL (31.6-35.5); Mean Corpuscular Hemoglobin 28.6 pg (28.0-33.3); Mean Corpuscular Volume 86.5 fL (83.0-100.0); Mean Platelet Volume 9.6 fL (9.4-12.4); Monocytes # 1.1 K/mcL (0.0-1.3); Monocytes % 7.7 %; Neutrophils # 9.7 K/mcL (1.6-8.9); Platelet Count 456 K/mcL (140-400); Red Blood Count 4.65 M/mcL (4.19-5.50); Red Cell Distribution Width 13.6 % (11.5-14.5); Segmented Neutrophils % 68.1 %
[2016-11-28] MEDS: *HR* Heparin 5,000 UNIT/ML VIAL SQ SCH ×2 (06:06→20:38)
[2016-11-28] MEDS ORDERED: *HR* OxyCODONE/APAP 5/325 TABLET PO PRN (15:02)
--- NOTE | 2016-11-28 15:06 | General Surgery Progress Note ---
Date of Encounter: 11/28/16 Time of Encounter: 15:02 Subjective Patient reports: no new complaints, feels better, tolerating liquids well Narrative: General Sugery - POD #6 The patient feeling well, afebrile hemodynamically stable. Voicing no complaints. Denies any abdominal pain. Blood pressure still elevated but improved on lisinopril. Lungs: Clear Abdomen: Soft, nontender; a small amount of serous fluid draining from the lower midportion of the midline incision. No detected seconds entericus as before. Active bowel sounds. Laboratories: Persistent leukocytosis, 14.3; hemoglobin 13.3, hematocrit 40.2. Neutrophilia unchanged at 9.7% IMPRESSION: Postoperative day 6, status post exploratory celiotomy with revision /resection disrupted enteroenterostomy. Persistent leukocytosis of uncertain significance Elevated blood pressure - lisinopril initiated Plan: Allow regular diet Recheck CBC in a.m. Continue to monitor for either intra-abdominal infection or anastomotic failure/leak Objective Vital Signs - Last 8 Hours Temp Pulse Resp BP Pulse Ox 11/28/16 14:09 97.4 F L 87 14 151/72 98 11/28/16 11:00 97.5 F L 81 14 138/72 97 Intake and Output 11/27/16 11/28/16 11/28/16 23:59 07:59 15:59 Intake Total 400 / 400 300 / 300 480 / 480 Output Total 350 / 350 1450 / 1450 550 / 550 Balance 50 / 50 -1150 / -1150 -70 / -70 Intake: Oral 400 / 400 300 / 300 480 / 480 Output: Urine 350 / 350 1450 / 1450 550 / 550 Other: Meal Dinner Breakfast Percent of Meal Consumed 100% 5% - Labs 11/28/16 04:40 11/25/16 02:35 - VTE Documentation of Mechanical Device: Intermittent pneumatic compression device Consult Discharge Plan - Plan Referrals: Cheng Hannah MD [Non-Partnered Physician] - Fabian Jarrett DO [Primary Care Provider] - Prescriptions: Lisinopril [Zestril] 10 mg PO DAILY #30 tablet
[2016-11-28] MEDS: Acetaminophen 325 MG TABLET PO PRN (22:19)
[2016-11-29 04:28] LABS: Basophils # 0.1 K/mcL (0.0-0.2); Basophils % 0.5 %; Eosinophils # 0.3 K/mcL (0.0-0.6); Eosinophils % 1.8 %; Hematocrit 39.8 % (37.5-50.1); Hemoglobin 13.7 g/dL (12.9-16.9); Immature Granulocytes % 1.6 % (0-4); Lymphocytes # 2.2 K/mcL (0.6-4.6); Mean Corpuscular HGB Conc 34.4 g/dL (31.6-35.5); Mean Corpuscular Hemoglobin 29.5 pg (28.0-33.3); Mean Corpuscular Volume 85.8 fL (83.0-100.0); Mean Platelet Volume 9.4 fL (9.4-12.4); Monocytes # 1.5 K/mcL (0.0-1.3); Neutrophils # 14.2 K/mcL (1.6-8.9); Platelet Count 441 K/mcL (140-400); Red Blood Count 4.64 M/mcL (4.19-5.50); Red Cell Distribution Width 13.7 % (11.5-14.5); Segmented Neutrophils % 76.1 %
[2016-11-29] MEDS: *HR* Heparin 5,000 UNIT/ML VIAL SQ SCH (05:00)
[2016-11-29] MEDS: Acetaminophen 325 MG TABLET PO PRN (05:00)
--- NOTE | 2016-11-29 09:11 | General Surgery Progress Note ---
Date of Encounter: 11/29/16 Time of Encounter: 09:07 Subjective Patient reports: no new complaints Narrative: General Surgery - POD #7 Patient remains afebrile, currently 98.3, heart rate 85-103, respirations 16 , blood pressure 155/87. Patient describes increased cramping abdominal pain and passage of large quantities of flatus during the night, but currently is in no acute distress Lungs: Clear, no abdominal pain with deep inspiration Abdomen: Soft, nontender to deep palpation though minimal rolo-incisional discomfort persists. Active bowel sounds Midline incision remains intact, minimal to moderate serous drainage from the caudal midportion of the incision as before. No noted Increasing drainage with advancing diet to regular. Urine output has been satisfactory, approximately 2000 mL in the last 24 hours, 650 mL so far today White count continues to rise - currently 18.7, hemoglobin stable at 13.7, hematocrit 39.8. Neutrophilia is also increased to 14.2% Impression: Postoperative day 7, status post exploratory celiotomy with revision /resection failed/leaking enteroenterostomy. Increasing leukocytosis, without accompanying abdominal pain. Finding is concerning. Elevated blood pressure improves with lisinopril Plan: CT abdomen and pelvis with IV and oral contrast. Objective Vital Signs - Last 8 Hours Temp Pulse Resp BP Pulse Ox 11/29/16 06:58 98.3 F 90 16 155/87 95 11/29/16 03:00 98.1 F 103 18 150/88 95 Intake and Output 11/28/16 11/29/16 11/29/16 23:59 07:59 15:59 Intake Total 360 / 360 240 / 240 Output Total 0 / 0 650 / 650 Balance 360 / 360 -650 / -650 240 / 240 Intake: Oral 360 / 360 240 / 240 Output: Urine 0 / 0 650 / 650 Other: Meal Dinner Breakfast Percent of Meal Consumed 80% 50% # Bowel Movements 0 - Labs 11/29/16 04:14 11/25/16 02:35 - VTE Documentation of Mechanical Device: Intermittent pneumatic compression device Consult Discharge Plan - Plan Referrals: Cheng Hannah MD [Non-Partnered Physician] - Fabian Jarrett DO [Primary Care Provider] - Prescriptions: Lisinopril [Zestril] 10 mg PO DAILY #30 tablet
[2016-11-29 14:29] VITALS: BP 165/78
--- NOTE | 2016-11-29 15:15 | General Surgery Progress Note ---
Date of Encounter: 11/29/16 Time of Encounter: 14:49 Subjective Patient reports: no new complaints Narrative: General Surgery - POD #7; Discharge Summary The patient feeling well, voicing no new complaints, clinically and hemodynamically stable Patient remains afebrile, currently 98.4, pulse 85, respirations 16, blood pressure ranging from 145/77-165/78. CT abdomen and pelvis completed this AM, reviewed with [facility]. Findings include: - Evidence of granulomatous disease seen previously; minimal dependent atelectasis - Postsurgical changes as expected, focal wall thickening noted at the anastomosis, no obvious leak or extravasation of oral contrast - Complex air and fluid collection 4.4 x 3.5 cm below the incision site - this is draining through the anterior abdominal incision - Focal well-circumscribed 2.9 x 2.8 cm fluid collection, possibly representing a developing abscess - Increased mesenteric stranding Lungs: Clear, no abdominal pain with deep inspiration Abdomen: Soft, nontender. Serous drainage from the incision corresponding to the duplex air/fluid collection described on CT Impression: Postoperative day 7, status post exploratory celiotomy revision/ resection leaking/disrupted enteroenterostomy. No evidence of recurrent leak but increased inflammatory findings described on CT Treatment options include IV antibiotics versus oral antibiotics with discharge home and close outpatient follow-up. This was discussed in great detail with the patient and his . It is reasonable to discharge the patient home as he will be more comfortable at home , able to rest with fewer disruptions/interruptions with follow-up in my office in 2 days. The patient and his are comfortable with discharge home on oral antibiotics. Hospital summary: 66-year-old male admitted to [facility] [place], 11/22/2016, approximately 14 days status post exploratory celiotomy with release of small bowel obstruction. To complete this release, a segment of small bowel was resected and a stapled enteroenterostomy created. The patient presented to my office, with foul-smelling drainage anterior abdominal wall strongly suspicious for an enterocutaneous fistula. This was verified on CT, which demonstrated contrast tracking to the anterior abdominal wall through the stapled anastomosis. The patient was admitted for IV fluids, IV antibiotics, and surgical intervention. The exploratory celiotomy, was completed on 11/22/16, revising/resecting the disrupted anastomosis. The patient's postoperative course was fairly unremarkable with resolution of abdominal pain and return of bowel function. Blood pressure was persistently elevated prompting therapy with lisinopril. Over the last few days the patient demonstrated an increasing leukocytosis without fever or abdominal symptoms. A CT of the abdomen and pelvis with oral and IV contrast complete was completed this morning and findings are listed above. The patient has remained clinically stable, experiencing no fever, chills, or increased abdominal pain. No nausea vomiting or diarrhea. The patient will continue even on an outpatient basis as described above. 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 Patient to call my office immediately if any fevers, chills, increasing abdominal pain, nausea, vomiting, or other GI symptoms. Medications: Tylenol, ibuprofen, Motrin, Advil, etc. as needed for pain Augmentin 875 mg by mouth twice a day 14 days Lisinopril 10 mg by mouth daily Objective Vital Signs - Last 8 Hours Temp Pulse Resp BP Pulse Ox 11/29/16 14:28 98.4 F 85 16 165/78 94 11/29/16 10:29 97.4 F L 90 16 145/77 94 11/29/16 06:58 98.3 F 90 16 155/87 95 Intake and Output 11/28/16 11/29/16 11/29/16 23:59 07:59 15:59 Intake Total 360 / 360 840 / 840 Output Total 0 / 0 650 / 650 0 / 0 Balance 360 / 360 -650 / -650 840 / 840 Intake: Oral 360 / 360 840 / 840 Output: Urine 0 / 0 650 / 650 0 / 0 Other: Meal Dinner Lunch Percent of Meal Consumed 80% 40% Stool Size Large Stool Consistency soft formed Stool Color Brown # Voids 1 # Bowel Movements 0 0 - Labs 11/29/16 04:14 11/25/16 02:35 - VTE Documentation of Mechanical Device: Intermittent pneumatic compression device Consult Discharge Plan - Plan Referrals: Cheng Hannah MD [Non-Partnered Physician] - Fabian Jarrett DO [Primary Care Provider] - Prescriptions: Lisinopril [Zestril] 10 mg PO DAILY #30 tablet
--- NOTE | 2016-11-29 15:19 | Discharge Summary ---
Outpatient Proc Discharge Plan - Plan Additional Instructions: Regular Diet Activity as tolerated, lifting limited to less than 20 pounds Patient may shower, wash incision with soap and water Dressings as instructed using calcium alginate (Maxsorb Ag) Follow-up my office, 12/01/16 Tylenol, ibuprofen, Motrin, Advil, etc. as needed for pain Lisinopril 10 mg by mouth daily for hypertension Prescriptions: Amoxicillin/Clavulanate [Augmentin] 875 mg PO BIDWM #28 tablet Lisinopril [Zestril] 10 mg PO DAILY #30 tablet Home Medications: Mv-Mn/FA/Vit K/Lycop/Lut/Coq10 [Daily Multivitamin Capsule] 1 each PO DAILY [History] Acetaminophen [Tylenol] 650 mg PO Q6HR PRN tablet 11/12/16 [Rx] Lisinopril [Zestril] 10 mg PO DAILY #30 tablet 11/27/16 [Rx] Acetaminophen [Tylenol] 650 mg PO Q6HR PRN tablet 11/29/16 [Rx] Amoxicillin/Clavulanate [Augmentin] 875 mg PO BIDWM #28 tablet 11/29/16 [Rx]
== END 2016-11-29 16:41 | disposition home or self-care (01) | DRG 907 ==
LOC: 3ANU
PROVIDERS: ADMIT Surgery; ATTEND Surgery